=== PATIENT | female | born 1955 | race Hispanic/Latino ===

== ENCOUNTER 2020-12-28 12:11 | Emergency (ER) | payer OTHER ==
--- OUTSIDE RECORDS SUMMARY | 2020-12-28 12:14 | XMS REPORT | Continuity of Care Document ---
:1955 Author Organization [facility] t Address [address] [place] [address] Care Team Providers Name Role Phone Barrie LIEBERMAN, K.H. Attending Clinician Problems This patient has no known problems. Allergies, Adverse Reactions, Alerts This patient has no known allergies or adverse reactions. Medications This patient has no known medications. Procedures This patient has no known procedures. Encounters Start End Encounter Admission Attending Care Care Encounter Source Date/Time Date/Time Type Type Clinicians Facility Department ID 2020-10-08 2020-10-08 Office CLAUDIA Sood [id number] 10:29:13 11:24:13 Visit Julianna Stevenson [id number] [place] [id number] [facility] [id number] [facility]9 Building 2020-08-10 2020-08-10 Office CLAUDIA Sood [id number] 08:38:54 09:08:54 Visit Julianna Stevenson [id number] [place] [id number] [facility] [id number] [facility] Results This patient has no known results.
--- NOTE | 2020-12-28 15:22 | RAD REPORT ---
EXAM DESCRIPTION: RAD - Tib Fib Left - 12/28/2020 3:05 pm CLINICAL HISTORY: Recurrent left lower extremity pain occasionally trigger a fall due to pain severi ty COMPARISON: None. FINDINGS: No fracture is identified. There is no dislocation or periosteal reaction noted. Ankle and knee joints, as imaged, show no acute findings. Patient does have a moderately large plantar spur. No foreign body or other soft tissue abnormality. IMPRESSION: Negative left tibia & fibula examination for acute finding Moderately large plantar spur.
--- NOTE | 2020-12-28 16:23 | EDPHYS ---
Physician Documentation [facility] Name: eJsica Figueroa Age: 65 yrs Sex: Female : 1955 Arrival Date: 12/28/2020 Time: 12:35 Bed 25 Private MD: ED Physician Brant Melchor HPI: 12/28 14:32 This 65 yrs old Female presents to ER via Ambulatory with complaints of Leg jmm Pain. 14:32 The patient presents with an injury, pain. Onset: The symptoms/episode began/occurred jmm gradually, 3 month(s) ago. Modifying factors: The symptoms are alleviated by remaining still, the symptoms are aggravated by movement, weight bearing. Associated signs and symptoms: Pertinent negatives calf tenderness, fever, swelling, tingling, vomiting, warmth, weakness. This is a 65 year old female with a history of htn, DM, HLP that presents to the ED with complaints of left lower leg pain beginning approx 3 months ago. Denies fever, redness, swelling. Patient states she has experienced 3 falls this year which may have injured the leg. . Historical: - Allergies: 12:38 No Known Allergies; ll1 - PMHx: 12:38 Hypertension; Diabetes - NIDDM; Hyperlipidemia; ll1 - PSHx: 12:38 ; ll1 - Immunization history:: Client reports receiving the 2nd dose of the Covid vaccine, Flu vaccine is not up to date. - Social history:: Smoking status: Patient denies any tobacco usage or history of. ROS: 14:32 Constitutional: Negative for fever, chills, and weight loss, Cardiovascular: Negative jmm for chest pain, palpitations, and edema, Respiratory: Negative for shortness of breath, cough, wheezing, and pleuritic chest pain. 14:32 MS/extremity: Positive for pain. 14:32 All other systems are negative. Exam: 14:32 Constitutional: This is a well developed, well nourished patient who is awake, alert, jmm and in no acute distress. Head/Face: atraumatic. Eyes: EOMI, no conjunctival erythema appreciated ENT: Moist Mucus Membranes Neck: Trachea midline, Supple Chest/axilla: Normal chest wall appearance and motion. Cardiovascular: Regular rate and rhythm. No edema appreciated Respiratory: Normal respirations, no respiratory distress appreciated Abdomen/GI: Non distended, soft Back: Normal ROM Skin: General appearance color normal 14:32 Musculoskeletal/extremity: ROM: intact in all extremities. 14:32 Skin: Appearance: 14:32 Neuro: Orientation: is normal, Mentation: is normal, Memory: is normal. 14:32 Psych: Behavior/mood is pleasant, cooperative. Vital Signs: 12:36 BP 119 / 74; Pulse 66; Resp 17; Temp 97.9; Pulse Ox 99% ; Weight 87.09 kg; Height 5 ft. ll1 2 in. (157.48 cm); Pain 8/10; 14:55 BP 98 / 56; Pulse 72; Resp 18; Pulse Ox 97% on R/A; zb 15:47 BP 105 / 92; Pulse 61; Resp 18; Pulse Ox 99% on R/A; zb 16:43 BP 108 / 61; Pulse 65; Resp 16; Pulse Ox 100% ; Pain 0/10; ll1 12:36 Body Mass Index 35.12 (87.09 kg, 157.48 cm) ll1 MDM: 14:32 Patient medically screened. [facility] 14:32 Data reviewed: vital signs, nurses notes. Counseling: I had a detailed discussion with [facility] the patient and/or guardian regarding: the historical points, exam findings, and any diagnostic results supporting the discharge/admit diagnosis, radiology results, the need for outpatient follow up, to return to the emergency department if symptoms worsen or persist or if there are any questions or concerns that arise at home. ED course: US and Xray are negative. Leg is NVI. I do not suspect cellulitis. Patient is advised to follow up with orthopedics for further evaluation. Patient understood and agrees with the plan of care. . 12/28 14:32 Order name: Tib Fib Left XRAY; Complete Time: 15:30 [facility] 12/28 14:32 Order name: US Extremity Venous Unilateral Ltd; Complete Time: 16:40 [facility] Administered Medications: No medications were administered Disposition: 17:33 Co-signature as Attending Physician, Brant Melchor MD. rn Disposition: 12/28/20 16:23 Discharged to Home. Impression: Pain in left leg. - Condition is Stable. - Discharge Instructions: Musculoskeletal Pain. - Prescriptions for orphenadrine citrate 100 mg Oral Tablet Sustained Release - take 1 tablet by ORAL route 2 times per day As needed; 20 tablet. - Medication Reconciliation Form, Thank You Letter, Antibiotic Education, Prescription Opioid Use form. - Follow up: Daniel Abraham MD; When: 2 - 3 days; Reason: Recheck today's complaints, Continuance of care, Re-evaluation by your physician. Signatures: Dispatcher [employer] EDMS Norris Miles PA PA jmm Nieto, Roman, MD MD rn Elías Andujar RN RN ll1 Corrections: (The following items were deleted from the chart) 16:43 16:23 12/28/2020 16:23 Discharged to Home. Impression: Pain in left leg. Condition is ll1 Stable. Forms are Medication Reconciliation Form, Thank You Letter, Antibiotic Education, Prescription Opioid Use. Follow up: Dr. Daniel Abraham; When: 2 - 3 days; Reason: Recheck today's complaints, Continuance of care, Re-evaluation by your physician. manjinder
--- NOTE | 2020-12-28 16:23 | ER ---
Nurse's Notes [facility] Name: Jesica Figueroa Age: 65 yrs Sex: Female : 1955 Arrival Date: 12/28/2020 Time: 12:35 Bed 25 Private MD: Diagnosis: Pain in left leg Presentation: 12/28 12:36 Chief complaint: Patient states: Left lower ext pain (between knee and ankle) for over ll1 1 year. It gives out at times and makes her fall. Coronavirus screen: Client denies travel out of the [place] in the last 14 days. At this time, the client does not indicate any symptoms associated with coronavirus-19. Ebola Screen: Patient denies travel to an Ebola-affected area in the 21 days before illness onset. Initial Sepsis Screen: Does the patient meet any 2 criteria? No. Patient's initial sepsis screen is negative. Does the patient have a suspected source of infection? Yes: Bone or joint infection. Risk Assessment: Do you want to hurt yourself or someone else? Patient reports no desire to harm self or others. Onset of symptoms was November 29, 2019. 12:36 Method Of Arrival: Ambulatory ll1 12:36 Acuity: ABHI 4 ll1 Historical: - Allergies: 12:38 No Known Allergies; ll1 - PMHx: 12:38 Hypertension; Diabetes - NIDDM; Hyperlipidemia; ll1 - PSHx: 12:38 ; ll1 - Immunization history:: Client reports receiving the 2nd dose of the Covid vaccine, Flu vaccine is not up to date. - Social history:: Smoking status: Patient denies any tobacco usage or history of. Screenin:54 Abuse screen: Denies threats or abuse. Denies injuries from another. Nutritional zb screening: No deficits noted. Tuberculosis screening: No symptoms or risk factors identified. Fall Risk None identified. Assessment: 14:54 General: Appears in no apparent distress. uncomfortable, Behavior is calm, cooperative. zb Pain: Complains of pain in left marroquin Pain currently is 3 out of 10 on a pain scale. at worst was 10 out of 10 on a pain scale. Quality of pain is described as aching, sharp, throbbing. Neuro: Level of Consciousness is awake, alert, obeys commands, Oriented to person, place, time, situation. Cardiovascular: Patient's skin is warm and dry. Respiratory: Airway is patent Respiratory effort is even, unlabored, Respiratory pattern is regular, symmetrical. GI: No deficits noted. No signs and/or symptoms were reported involving the gastrointestinal system. Derm: Skin is intact, Skin is dry, Skin is normal. Musculoskeletal: Circulation, motion, and sensation intact. Range of motion: intact in all extremities. 15:47 Reassessment: Patient appears in no apparent distress at this time. Patient and/or zb family updated on plan of care and expected duration. Pain level reassessed. Patient is alert, oriented x 3, equal unlabored respirations, skin warm/dry/pink. US at beside. family at bedside. Vital Signs: 12:36 BP 119 / 74; Pulse 66; Resp 17; Temp 97.9; Pulse Ox 99% ; Weight 87.09 kg; Height 5 ft. ll1 2 in. (157.48 cm); Pain 8/10; 14:55 BP 98 / 56; Pulse 72; Resp 18; Pulse Ox 97% on R/A; zb 15:47 BP 105 / 92; Pulse 61; Resp 18; Pulse Ox 99% on R/A; zb 16:43 BP 108 / 61; Pulse 65; Resp 16; Pulse Ox 100% ; Pain 0/10; ll1 12:36 Body Mass Index 35.12 (87.09 kg, 157.48 cm) ll1 ED Course: 12:35 Patient arrived in ED. ll1 12:37 Triage completed. ll1 14:23 Arm band placed on Patient placed in an exam room, on a stretcher. 1 14:28 Norris Miles PA is PHCP. [facility] 14:28 Brant Melchor MD is Attending Physician. jmm 14:53 Candie Salmeron, MAXX is Primary Nurse. zb 14:56 Patient has correct armband on for positive identification. Placed in gown. Bed in low zb position. Side rails up X 1. Pulse ox on. NIBP on. Door closed. Noise minimized. 15:05 Tib Fib Left XRAY In Process Unspecified. EDMS 16:01 US Extremity Venous Unilateral Ltd In Process Unspecified. EDMS 16:22 Daniel Abraham MD is Referral Physician. [facility] 16:42 No provider procedures requiring assistance completed. Patient did not have IV access ll1 during this emergency room visit. Administered Medications: No medications were administered Outcome: 16:23 Discharge ordered by . manjinder 16:42 Discharged to home ambulatory. ll1 16:42 Condition: stable 16:42 Discharge instructions given to patient, family, Instructed on discharge instructions, follow up and referral plans. medication usage, Demonstrated understanding of instructions, follow-up care, medications, Prescriptions given X 1. 16:43 Patient left the ED. ll1 Signatures: Dispatcher [employer] EDMS Norris Miles PA PA jmm Lewis, Lynsay, RN RN ll1 Candie Salmeron RN RN zb Corrections: (The following items were deleted from the chart) 12:39 12:36 BP 199 / 74; Pulse 66bpm; Resp 17bpm; Pulse Ox 99%; Temp 97.9F; 87.09 kg; Height ll1 5 ft. 2 in.; BMI: 35.1; Pain 8/10; ll1 14:23 12:38 Arm band placed on Patient placed in an exam room, on a stretcher, ll1 ll1
--- NOTE | 2020-12-28 16:33 | RAD REPORT ---
EXAM DESCRIPTION: US - Extremity Venous Uni Ltd - 12/28/2020 4:02 pm CLINICAL HISTORY: leg pain COMPARISON: None. TECHNIQUE: Real-time sonographic evaluation of the left lower extremity deep venous system was perfo rmed. FINDINGS: Normal compressibility, flow augmentation, phasic flow and spontaneous flow are identified in the left lower extremity common femoral, superficial femoral, popliteal and posterior tibial vein s. No intraluminal filling defects seen. IMPRESSION: No DVT in the left lower extremity.
[2020-12-28 16:49] VITALS: TEMP 97.9
[2020-12-28 16:53] VITALS: BP 108/61; O2SAT 100
== END 2020-12-28 16:43 | disposition home or self-care (01) ==
LOC: ER 12:11
DX: M79.605 Pain in left leg (principal); I10 Essential (primary) hypertension; E11.9 Type 2 diabetes mellitus without complications; Z91.81 History of falling
CPT/HCPCS: 93971; 99283

== ENCOUNTER 2021-04-30 23:33 | Emergency (ER) | payer OTHER ==
[2021-05-01 00:38] LABS: Urine Blood 2+ (Negative); Urine Glucose Negative (Negative); Urine Protein 2+ (Negative); Urine Specific Gravity >=1.030 (1.005-1.030)
[2021-05-01 00:57] LABS: Absolute Lymphocytes (CBC) 1.2 K/uL (0.7-4.9); Basophils % 0.4 % (0-1.3); Hematocrit 44.2 % (36.0-45.0); Lymphocytes % 9.1 % (15.3-44.8); MPV 9.9 fL (7.6-11.3); RBC Red Blood Cell Count 5.07 M/uL (3.86-4.86)
[2021-05-01 00:59] LABS: Protime INR 1.25
[2021-05-01 01:11] LABS: Barbiturates NEGATIVE (NEGATIVE); Benzodiazepines NEGATIVE (NEGATIVE); Cocaine NEGATIVE (NEGATIVE); METHAMPHETAM NEGATIVE (NEGATIVE); Methadone NEGATIVE (NEGATIVE); Opiates NEGATIVE (NEGATIVE); Phencyclidine NEGATIVE (NEGATIVE); THC Cannibis NEGATIVE (NEGATIVE)
[2021-05-01 01:28] LABS: ALT/SGPT 40 U/L (12-78); AST/SGOT 99 U/L (15-37); Albumin 3.8 g/dL (3.4-5.0); Alkaline Phosphatase 80 U/L (45-117); BUN Blood Urea Nitrogen 20 mg/dL (7-18); Bicarbonate 27 mmol/L (21-32); Bilirubin Direct 0.6 mg/dL (0-0.2); Bilirubin Total 1.9 mg/dL (0.2-1.0); Glucose Level 139 mg/dL (74-106); Magnesium 2.1 mg/dL (1.8-2.4); NT PRO-BNP 1410 pg/mL (<125); Potassium 3.5 mmol/L (3.5-5.1); Protein, Total 8.1 g/dL (6.4-8.2); Sodium Level 142 mmol/L (136-145); Troponin (Emerg Dept Use Only) 0.36 ng/mL (0.0-0.045)
[2021-05-01 01:29] LABS: Creatine Phosphokinase 2853 U/L (26-192)
[2021-05-01] MEDS ORDERED: CEFTRIAXONE 1000 MG/VIAL ONE (02:41)
[2021-05-01] MEDS ORDERED: NA CHLORIDE 0.9% 1,000 ML ONE (02:42)
[2021-05-01 03:17] LABS: SARS-COV-2 RT PCR NEGATIVE (NEGATIVE)
[2021-05-01] MEDS ORDERED: LEVETIRACETAM 500 MG/5 ML VIAL IV ONE (03:56)
[2021-05-01] MEDS ORDERED: dexAMETHasone 10 MG/ML VIAL ONE (03:56)
--- NOTE | 2021-05-01 05:56 | EDPHYS ---
Physician Documentation [facility] Name: Jesica Figueroa Age: 65 yrs Sex: Female : 1955 Arrival Date: 04/30/2021 Time: 23:40 Bed 13 Private MD: ED Physician Percy Morrison HPI: 04/30 23:45 This 65 yrs old Female presents to ER via Unassigned with complaints of Passed mh7 Out.. 23:45 The patient has experienced syncope, collapsed. Onset: The symptoms/episode mh7 began/occurred today. Duration: This was a single episode, that lasted an unknown period of time. Context: the episode(s) was witnessed, by no one, occurred at home, occurred while the patient was standing, Just prior to the episode the patient experienced no apparent symptoms. Associated injury: The patient did not suffer any apparent associated injury. Associated signs and symptoms: Pertinent negatives: abdominal pain, agitation, ataxia, blurred vision, chest pain, combativeness, confusion, diaphoresis, diarrhea, dizziness, headache, lightheadedness, nausea, numbness, palpitations, seizure, shortness of breath, tingling, vertigo, vomiting, weakness. Current symptoms: Currently, the patient is not experiencing any symptoms, the patient feels back to baseline. Patient states that she passed out today and was on the floor for several hours. Her found her on the floor and called EMS. She states that she had a similar episode about a week ago and was on the floor for several days. She denies any symptoms prior to passing out including headache, chest pain, abdominal pain, shortness of breath, nausea, vomiting, diarrhea, dizziness, numbness/tingling, or focal weakness.. Historical: - PMHx: 05/01 00:18 Diabetes - NIDDM; Hypertension; Hyperlipidemia; mr2 - Immunization history:: Adult Immunizations up to date. - Social history:: Patient/guardian denies using alcohol, street drugs, tobacco products. ROS: 04/30 23:45 Constitutional: Negative for fever, chills, and weight loss, Eyes: Negative for injury, mh7 pain, redness, and discharge, ENT: Negative for injury, pain, and discharge, Neck: Negative for injury, pain, and swelling, Cardiovascular: Negative for chest pain, palpitations, and edema, Respiratory: Negative for shortness of breath, cough, wheezing, and pleuritic chest pain, Abdomen/GI: Negative for abdominal pain, nausea, vomiting, diarrhea, and constipation, Back: Negative for injury and pain, : Negative for injury, bleeding, discharge, and swelling. Skin: Negative for injury, rash, and discoloration, Neuro: Negative for headache, weakness, numbness, tingling, and seizure, Psych: Negative for depression, anxiety, suicide ideation, homicidal ideation, and hallucinations, Allergy/Immunology: Negative for hives, rash, and allergies, Endocrine: Negative for neck swelling, polydipsia, polyuria, polyphagia, and marked weight changes, Hematologic/Lymphatic: Negative for swollen nodes, abnormal bleeding, and unusual bruising. MS/extremity: Positive for pain, of the Right hip. Exam: 23:45 Head/Face: Normocephalic, atraumatic. mh7 23:45 Eyes: Pupils equal round and reactive to light, extra-ocular motions intact. Lids and lashes normal. Conjunctiva and sclera are non-icteric and not injected. Cornea within normal limits. Periorbital areas with no swelling, redness, or edema. Neck: Trachea midline, no thyromegaly or masses palpated, and no cervical lymphadenopathy. Supple, full range of motion without nuchal rigidity, or vertebral point tenderness. No Meningismus. Chest/axilla: Normal chest wall appearance and motion. Nontender with no deformity. No lesions are appreciated. 23:45 Constitutional: The patient appears in no acute distress, alert, awake, uncomfortable, unkempt. 23:45 Cardiovascular: Rate: tachycardic, Rhythm: regular, Pulses: no pulse deficits are mh7 appreciated, Heart sounds: normal, normal S1and S2, Edema: is not appreciated, JVD: is not appreciated. 23:45 Respiratory: Lungs have equal breath sounds bilaterally, clear to auscultation and mh7 percussion. No rales, rhonchi or wheezes noted. No increased work of breathing, no retractions or nasal flaring. Abdomen/GI: Soft, non-tender, with normal bowel sounds. No distension or tympany. No guarding or rebound. No evidence of tenderness throughout. Back: No spinal tenderness. No costovertebral tenderness. Full range of motion. Skin: Warm, dry with normal turgor. Normal color with no rashes, no lesions, and no evidence of cellulitis. 23:45 Musculoskeletal/extremity: Extremities: noted in the left leg: weakness, noted in the Right hip: tenderness, ROM: limited active range of motion, in the left leg, Circulation is intact in all extremities. Sensation intact. Compartment Syndrome exam of affected extremity: is normal. no numbness, no tingling, no sensation deficit, Joints: the right hip displays tenderness. 23:45 Neuro: Orientation: to person, place, Mentation: confused, Confused about timing of events, Memory: immediate memory is intact, remote memory is intact. recent memory is impaired, Cranial nerves: grossly normal, Cerebellar function: the patient is unable to track left heel to right marroquin, Motor: Strength is 2/5 in the left leg, Sensation: no obvious gross deficits, Gait: not tested. seizure activity, is not displayed by the patient, Abnormal movements: there are no abnormal movements. Vital Signs: 05/01 00:49 BP 121 / 73; Pulse 102; Resp 18; Temp 98.4; Pulse Ox 98% on R/A; Weight 83.91 kg; mr2 Height 5 ft. 2 in. (157.48 cm); 02:00 BP 111 / 78; Pulse 97; Resp 18; Temp 98.3; Pulse Ox 97% on R/A; Pain 3/10; mr2 03:00 BP 122 / 82; Pulse 91; Resp 17; Temp 98.4; Pulse Ox 98% on R/A; Pain 3/10; mr2 04:00 BP 107 / 80; Pulse 100; Resp 17; Temp 98.2; Pulse Ox 97% on R/A; Pain 2/10; mr2 07:37 BP 109 / 66; Pulse 87; Resp 17; Temp 98.4(TE); Pulse Ox 95% on R/A; oh 09:57 BP 105 / 73; Pulse 71; Resp 20; Temp 98.1(TE); Pulse Ox 99% ; oh 00:49 Body Mass Index 33.84 (83.91 kg, 157.48 cm) mr2 [place] Coma Score: 01:34 Eye Response: spontaneous(4). Verbal Response: confused(4). Motor Response: obeys mr2 commands(6). Total: 14. Trauma Score (Adult): 01:35 Eye Response: spontaneous(1); Verbal Response: confused(1); Motor Response: obeys mr2 commands(2); Systolic BP: > 89 mm Hg(4); Respiratory Rate: 10 to 29 per min(4); [place] Score: 14; Trauma Score: 12 MDM: 05:51 Differential Diagnosis: cardiac arrhythmia, cerebrovascular accident, drug effect, [facility] idiopathic syncope, pseudo seizure, seizure, sepsis, transient ischemic attack, vasovagal episode. Data reviewed: vital signs, nurses notes, lab test result(s), cardiac enzymes, CBC, electrolytes, urinalysis, EKG, radiologic studies, CT scan, plain films. Data interpreted: Pulse oximetry: on room air is 97 %. Interpretation: normal. Counseling: I had a detailed discussion with the patient and/or guardian regarding: the historical points, exam findings, and any diagnostic results supporting the discharge/admit diagnosis, lab results, radiology results, the need to transfer to another facility, [facility] does not immediately have the required specialist. Response to treatment: the patient's symptoms have mildly improved after treatment. 05:55 Patient medically screened. [facility] 07:07 Transition of care: After a detail discussion of the patient's case, care is 7 transferred to Emmett Wilkes MD. 04/30 23:55 Order name: Basic Metabolic Panel [facility] 04/30 23:55 Order name: CBC with Diff [facility] 04/30 23:55 Order name: LFT's [facility] 04/30 23:55 Order name: Magnesium [facility] 04/30 23:55 Order name: NT PRO-BNP; Complete Time: 01:38 [facility] 04/30 23:55 Order name: PT-INR; Complete Time: 01:18 [facility] 04/30 23:55 Order name: Troponin (emerg Dept Use Only); Complete Time: 01:38 [facility] 04/30 23:55 Order name: UDS; Complete Time: 01:18 [facility] 04/30 23:55 Order name: CPK; Complete Time: 01:38 [facility] 04/30 23:55 Order name: Basic Metabolic Panel; Complete Time: 01:31 EDPA 04/30 23:55 Order name: CBC with Automated Diff; Complete Time: 01:18 [facility] 04/30 23:55 Order name: Liver (Hepatic) Function; Complete Time: 01:38 EDMS 04/30 23:55 Order name: ETOH Level; Complete Time: 01:38 [facility] 04/30 23:55 Order name: Acetaminophen; Complete Time: 01:38 [facility] 04/30 23:55 Order name: XRAY Chest (1 view) [facility] 04/30 23:55 Order name: CT Head C Spine [facility] 04/30 23:55 Order name: Pelvis XRAY [facility] 04/30 23:55 Order name: Hip Right 2 View XRAY [facility] 04/30 23:55 Order name: Salicylate; Complete Time: 01:38 [facility] 04/30 23:56 Order name: Magnesium; Complete Time: 01:38 EDMS 05/01 00:05 Order name: CT Chest, Abdomen, Pelvis - W/Contrast [facility] 05/01 00:37 Order name: Urine Dipstick-Ancillary; Complete Time: 01:18 EDMS 05/01 01:39 Order name: Blood Culture Adult (2) [facility] 05/01 01:39 Order name: Urine Culture [facility] 05/01 01:39 Order name: Lactate; Complete Time: 03:08 [facility] 05/01 01:39 Order name: Procalcitonin; Complete Time: 03:08 [facility] 05/01 03:17 Order name: COVID-19/FLU A+B; Complete Time: 03:21 EDMS 04/30 23:55 Order name: EKG; Complete Time: 23:56 [facility] 04/30 23:55 Order name: Cardiac monitoring; Complete Time: 00:48 [facility] 04/30 23:55 Order name: EKG - Nurse/Tech; Complete Time: 00:48 [facility] 04/30 23:55 Order name: IV Saline Lock; Complete Time: 00:48 [facility] 04/30 23:55 Order name: Labs collected and sent; Complete Time: 00:48 [facility] 04/30 23:55 Order name: O2 Per Protocol; Complete Time: 00:48 [facility] 04/30 23:55 Order name: O2 Sat Monitoring; Complete Time: 00:48 [facility] 04/30 23:55 Order name: Urine Dipstick-Ancillary (obtain specimen); Complete Time: 00:48 7 Administered Medications: 02:08 Drug: Rocephin (cefTRIAXone) 1 grams Route: IV; Rate: per protocol; Site: right mr2 antecubital; 02:09 Drug: NS 0.9% 1000 ml Route: IV; Rate: 1 bolus; Site: right antecubital; mr2 03:29 Drug: Keppra (levETIRAcetam) 1000 mg Route: IV; Rate: per protocol; Site: right upper mr2 arm; 03:29 Drug: Decadron - Dexamethasone 10 mg Route: IVP; Site: right upper arm; mr2 Disposition Summary: 05/01/21 05:55 Transfer Ordered Transfer Location: Other Acute Care Facility [facility] Reason: Higher level of care [facility] Condition: Fair [facility] Problem: new [facility] Symptoms: have improved 7 Accepting Physician: Neuro/cards(05/01/21 10:56) oh Diagnosis - Cerebral edema mh7 - Subsequent non-ST elevation (NSTEMI) myocardial infarction mh7 - Syncope 7 - UTI/ Urinary tract infection, site not specified [facility] - Rhabdomyolysis [facility] Forms: - Medication Reconciliation Form 7 - SBAR form [facility] Signatures: Dispatcher [employer] EDPA Morgan Meyers, BONING ROOM WORKER-C BONING ROOM WORKER-Cla1 Percy Morrison MD MD 7 Wan Mendoza, RN RN mr2 Max Huerta RN RN oh Corrections: (The following items were deleted from the chart) 02: 01:42 CORONAVIRUS+MR.LAB.BRZ ordered. EDMS EDMS 02:31 01:42 Influenza Screen (A \T\ B)+BA.LAB.BRZ ordered. EDMS EDMS 10:56 05:55 Neuro/cards 7 oh
--- NOTE | 2021-05-01 05:56 | ER ---
Nurse's Notes [facility] Name: Jesica Figueroa Age: 65 yrs Sex: Female : 1955 Arrival Date: 04/30/2021 Time: 23:40 Bed 13 Private MD: Diagnosis: Cerebral edema;Subsequent non-ST elevation (NSTEMI) myocardial infarction;Syncope;UTI/ Urinary tract infection, site not specified;Rhabdomyolysis Presentation: 05/01 00:13 Chief complaint: Patient states: pt lives alone and states that she fell down today and mr2 was laying on the floor all day. pt found by ex who stopped by house after not hearing from her in 3 days. Coronavirus screen: Vaccine status: Patient reports receiving the 2nd dose of the covid vaccine. Ebola Screen: Patient negative for fever greater than or equal to 101.5 degrees Fahrenheit, and additional compatible Ebola Virus Disease symptoms Patient denies exposure to infectious person. Patient denies travel to an Ebola-affected area in the 21 days before illness onset. No symptoms or risks identified at this time. Risk Assessment: Do you want to hurt yourself or someone else? Patient reports no desire to harm self or others. Onset of symptoms was April 30, 2021. Mechanism of Injury: Fall from standing position. 00:13 Method Of Arrival: EMS: [facility] mr2 00:13 Acuity: ABHI 3 mr2 Triage Assessment: 00:19 General: Appears distressed, unkempt, Behavior is cooperative, anxious. Pain: Complains mr2 of pain in right hip Pain at worst was 7 out of 10 on a pain scale. Neuro: Reports weakness. Historical: - PMHx: 00:18 Diabetes - NIDDM; Hypertension; Hyperlipidemia; mr2 - Immunization history:: Adult Immunizations up to date. - Social history:: Patient/guardian denies using alcohol, street drugs, tobacco products. Screenin:53 Abuse screen: Denies threats or abuse. Denies injuries from another. Nutritional mr2 screening: No deficits noted. Tuberculosis screening: No symptoms or risk factors identified. Fall Risk Fall in past 12 months (25 points). Gait- Weak (10 pts.). Primary Survey: 01:30 NO uncontrolled hemorrhage observed. A: Airway: patent. Breathing/Chest: Respiratory mr2 pattern: regular, Respiratory effort: spontaneous, Breath sounds: clear, Chest inspection: symmetrical rise and fall of the chest. Circulation: Pulses: palpable right radial artery, right dorsalis pedis artery, left radial artery, left dorsalis pedis artery and right carotid pulse. Skin color: pink, Skin temperature: warm, dry. Disability Alert. Exposure/Environment: All clothing and personal items were removed. Forensic evidence collection is not deemed to be indicated at this time. Items placed in patient belonging bag. There is no evidence of uncontrolled external bleeding. A warming method has been applied: A warm blanket has been provided to the patient. Secondary Survey: 01:30 HEENT: No deficits noted. Gastrointestinal: Patient is incontinent of stool. : No mr2 signs and/or symptoms were reported regarding the genitourinary system. Musculoskeletal: Reports pain in right hip. Assessment: 00:50 General: Appears unkempt. Pain:. Neuro: Level of Consciousness is awake, obeys mr2 commands, confused, Oriented to Speech is normal. 07:41 Reassessment: Receive pt from previous shift, pt sleeping, awaiting transfer. vitals oh stable , will continue to monitor. 09:55 Reassessment: pt awake alert, asking questions regarding care. Report given to [facility] neuro rm 221, MAXX Daley receiving nurse. Vital Signs: 00:49 BP 121 / 73; Pulse 102; Resp 18; Temp 98.4; Pulse Ox 98% on R/A; Weight 83.91 kg; mr2 Height 5 ft. 2 in. (157.48 cm); 02:00 BP 111 / 78; Pulse 97; Resp 18; Temp 98.3; Pulse Ox 97% on R/A; Pain 3/10; mr2 03:00 BP 122 / 82; Pulse 91; Resp 17; Temp 98.4; Pulse Ox 98% on R/A; Pain 3/10; mr2 04:00 BP 107 / 80; Pulse 100; Resp 17; Temp 98.2; Pulse Ox 97% on R/A; Pain 2/10; mr2 07:37 BP 109 / 66; Pulse 87; Resp 17; Temp 98.4(TE); Pulse Ox 95% on R/A; oh 09:57 BP 105 / 73; Pulse 71; Resp 20; Temp 98.1(TE); Pulse Ox 99% ; oh 00:49 Body Mass Index 33.84 (83.91 kg, 157.48 cm) mr2 [place] Coma Score: 01:34 Eye Response: spontaneous(4). Verbal Response: confused(4). Motor Response: obeys mr2 commands(6). Total: 14. Trauma Score (Adult): 01:35 Eye Response: spontaneous(1); Verbal Response: confused(1); Motor Response: obeys mr2 commands(2); Systolic BP: > 89 mm Hg(4); Respiratory Rate: 10 to 29 per min(4); Hang Score: 14; Trauma Score: 12 ED Course: 04/30 23:40 Patient arrived in ED. bp1 23:42 Percy Morrison MD is Attending Physician. [facility] 05/01 00:13 Wan Mendoza, RN is Primary Nurse. mr2 00:18 Triage completed. mr2 00:23 Arm band placed on right wrist. EKG completed in triage. Results shown to MD. mr2 00:28 XRAY Chest (1 view) In Process Unspecified. EDMS 00:28 Pelvis XRAY In Process Unspecified. EDMS 00:28 Hip Right 2 View XRAY In Process Unspecified. EDMS 00:47 Magnesium Sent. mr2 00:47 Salicylate Sent. mr2 00:47 Acetaminophen Sent. mr2 00:47 ETOH Level Sent. mr2 00:48 NT PRO-BNP Sent. mr2 00:48 PT-INR Sent. mr2 00:48 Troponin (emerg Dept Use Only) Sent. mr2 00:48 Magnesium Sent. mr2 00:48 LFT's Sent. mr2 00:48 CBC with Diff Sent. mr2 00:48 Basic Metabolic Panel Sent. mr2 00:48 CPK Sent. mr2 00:48 UDS Sent. mr2 00:48 Basic Metabolic Panel Sent. mr2 00:48 Liver (Hepatic) Function Sent. mr2 00:48 CBC with Automated Diff Sent. mr2 01:30 Notified ED physician of a critical lab result(s). CPK [id number] Dr Morrison notified. bb 01:40 Inserted saline lock: 20 gauge in right antecubital area, using aseptic technique. mr2 01:42 Patient has correct armband on for positive identification. Placed in gown. Bed in low mr2 position. Call light in reach. 02:20 CT Head C Spine In Process Unspecified. EDMS 02:20 CT Chest, Abdomen, Pelvis - W/Contrast In Process Unspecified. EDMS 02:59 Initiated transfer at [facility] with Laura Ward. Stated she would check bed tt3 availability and call back. 03:18 Laura Friend called back with their physician to speak with Dr. Morrison regarding the tt3 transfer request. 04:09 Laura Friend called back from [facility] to speak with Dr. Morrison. tt3 04:29 Laura Friend called back with Dr. Andrews to speak with Dr. Morrison. tt3 05:36 Laura Friend called back to connect Dr. Morrison with their neurosurgeon. tt3 05:[address]ist Dr[address] Avinash Dalton with Dr. Morrison for patient transfer eb consultation. 07:19 Primary Nurse role handed off by Wan Mendoza RN oh 07:19 Max Huerta, MAXX is Primary Nurse. oh 08:38 administrative approval given by Shane Haji Rn/ patient has been accepted to [facility] tele rm 2210/ Dr. Avinash Juarez has accepted the patient in transfer/ report to be called to the transfer center to [phone]. 10:55 Patient transferred, IV remains in place. oh Administered Medications: 02:08 Drug: Rocephin (cefTRIAXone) 1 grams Route: IV; Rate: per protocol; Site: right mr2 antecubital; 02:09 Drug: NS 0.9% 1000 ml Route: IV; Rate: 1 bolus; Site: right antecubital; mr2 03:29 Drug: Keppra (levETIRAcetam) 1000 mg Route: IV; Rate: per protocol; Site: right upper mr2 arm; 03:29 Drug: Decadron - Dexamethasone 10 mg Route: IVP; Site: right upper arm; mr2 Outcome: 05:55 ER care complete, transfer ordered by MD. nielson 10:01 Transferred to [facility]. oh 10:01 Instructed on the need for transfer. 10:56 Patient left the ED. oh Addendum: 05/06/2021 12:39 Addendum: Culture Results: Positive urine culture. Other given rocephin in ER, i w transferred to [facility] for further treatment. Signatures: Dispatcher [employer] Avril Gray, RN RN bb Sara Mosher RN RN iw Farzana Evans Brittany bp1 Holmes, Maurice, MD MD mh7 Colin Bashir tt3 Wan Mendoza RN RN mr2 Max Huerta RN RN oh Corrections: (The following items were deleted from the chart) 05/01 10:00 09:57 BP 105 / 73; oh oh 05/06 12:40 12:39 Addendum: Culture Results: Positive urine culture. [facility]
[2021-05-01 11:09] VITALS: BP 105/73; TEMP 98.1; O2SAT 99
--- NOTE | 2021-05-01 20:54 | RAD REPORT ---
EXAM DESCRIPTION: CT - Chest Abdomen Pelvis W Cont - 05/01/2021 4:14 am CLINICAL HISTORY: TRAUMA COMPARISON: None. TECHNIQUE: CT CHEST ABDOMEN PELVIS WITH IV CONTRAST on 05/01/2021 12:05 AM CDT. MIPS reconstructions were generated. This exam was performed according to our departmental dose-optimization program, which includes autom ated exposure control, adjustment of the mA and/or kV according to patient size and/or use of iterati ve reconstruction technique. FINDINGS: Vascular: Thoracic aorta is normal in course and caliber without aneurysm or dissection. P ulmonary arteries are adequately opacified without acute or chronic filling defects. Abdominal aorta is normal in course and caliber without aneurysm. Pelvic arteries are patent without aneurysm or occl usion. Chest: The heart is normal in size. There is no pericardial effusion. Intrathoracic lymph nodes are n ot enlarged. There is no pleural effusion, pleural thickening or pneumothorax. Central airways are patent. There i s bibasilar atelectasis and scarring. Abdomen: There is a right hepatic lobe cyst measuring 4.2 cm. There is no biliary dilatation. Gallbla dder is normal in appearance. The pancreas and spleen are normal in appearance. The adrenal glands an d kidneys are unremarkable. There is no free air. There is no retroperitoneal adenopathy. Pelvis: There is moderate distal colonic stool content. Urinary bladder is decompressed with a Rivera catheter as well as air within. There is no free fluid. Appendix is normal. Skeleton: There are no acute osseous findings. No suspicious bony lesions. IMPRESSION: No definite acute inflammatory process. No posttraumatic findings. Electronically signed by: Wellington Theodore MD 05/01/2021 3:12 AM CDT Due to temporary technical issues with the PACS/Fluency reporting system, reports are being signed by the in house radiologists without review as a courtesy to insure prompt reporting. The interpreting radiologist is fully responsible for the content of the report.
--- NOTE | 2021-05-01 20:57 | RAD REPORT ---
EXAM DESCRIPTION: CT - Head C Spine Mpr Wo Con - 05/01/2021 4:13 am CLINICAL HISTORY: Trauma COMPARISON: None. TECHNIQUE: CT HEAD AND CERVICAL SPINE WITHOUT CONTRAST on 04/30/2021 11:55 PM CDT This exam was performed according to our departmental dose-optimization program, which includes autom ated exposure control, adjustment of the mA and/or kV according to patient size and/or use of iterati ve reconstruction technique. FINDINGS: Brain: There is extensive vasogenic edema throughout much of the left frontal lobe. There is severe mass effect with [id number] midline shift of 1.8 cm. There is some involvement of the ri ght frontal lobe as well. Mcbride-white differentiation is preserved. There is no hydrocephalus. There i s no significant volume loss for age. The calvarium is intact. Orbits and globes are unremarkable. The paranasal sinuses are clear. Mastoid air cells are clear. Cervical Spine: There is no acute fracture. Alignment is anatomic. Disc spaces are maintained. Vertebral body heights are preserved. Soft tissues are unremarkable. IMPRESSION: No acute hemorrhage. 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 No convincing posttraumatic findings. Electronically signed by: Wellington Theodore MD 05/01/2021 2:54 AM CDT Due to temporary technical issues with the PACS/Fluency reporting system, reports are being signed by the in house radiologists without review as a courtesy to insure prompt reporting. The interpreting radiologist is fully responsible for the content of the report.
--- NOTE | 2021-05-01 22:17 | RAD REPORT ---
EXAM DESCRIPTION: RAD - Hip Right 2 View - 05/01/2021 12:28 am CLINICAL HISTORY: 65 years, Female, trauma Hip Right 2 View COMPARISON: None. FINDINGS: 2 views of the hip (frontal view of the right hip and frogleg view of the right hip) were obtained. The presence of external devices within the field of imaging limits the evaluation. No ar eas of acute bony injuries were demonstrated. No gross soft tissue abnormality is identified. The re are no gross intraosseous lesions. No periosteal reaction were seen. The right hip joint demon strate very minimal early spur formation along the anterior superior aspect of the acetabulum. No def initive significant displaced fracture could be seen. No definitive displaced fracture are identified, if symptoms persist, clinical correlation and/or fur ther evaluation with CT scan and/or MRI could be of assistance. IMPRESSION: Very minimal early spur formation along the anterior superior aspect of the right acetab ulum. No definitive displaced fracture could be seen. Electronically signed by: Jayden Yen MD 05/01/2021 2:48 AM CDT Due to temporary technical issues with the PACS/Fluency reporting system, reports are being signed by the in house radiologists without review as a courtesy to insure prompt reporting. The interpreting radiologist is fully responsible for the content of the report.
--- NOTE | 2021-05-01 22:19 | RAD REPORT ---
EXAM DESCRIPTION: RAD - Pelvis - 05/01/2021 12:27 am CLINICAL HISTORY: 65 years, Female, TRAUMA COMPARISON: None. FINDINGS: 1 single frontal view of the pelvis was obtained. There is mild diffuse bony osteopenia. N o areas of acute bony injuries were demonstrated. No gross soft tissue abnormality is identified. There are no gross intraosseous lesions. No periosteal reaction were seen. Visualized gas patter n is nondiagnostic. Pelvic brim is intact. Bilateral hip joints demonstrate to be within normal limit s. IMPRESSION: No areas of acute bony injuries were demonstrated. Electronically signed by: Jayden Yen MD 05/01/2021 2:47 AM CDT Due to temporary technical issues with the PACS/Fluency reporting system, reports are being signed by the in house radiologists without review as a courtesy to insure prompt reporting. The interpreting radiologist is fully responsible for the content of the report.
--- NOTE | 2021-05-01 22:22 | RAD REPORT ---
EXAM DESCRIPTION: RAD - Chest Single View - 05/01/2021 12:27 am CLINICAL HISTORY: 65 years, Female, syncope COMPARISON: None. FINDINGS: Single view of the chest was obtained portable. No prior films are available for compariso n. There is elevation of the right hemidiaphragm with minimal compressive atelectatic changes. The cardiomediastinal silhouette demonstrate to be unremarkable. The heart is not enlarged. The thoracic aorta is unremarkable. Costophrenic angles are sharp. No areas of consolidation or masses are seen. External EKG leads within the [id number] limits diagnosis. The rest of the soft tissue and bony s tructures demonstrate to be unremarkable. IMPRESSION: No acute cardiopulmonary process seen. Elevated right hemidiaphragm with minimal compressive atelectatic changes. Electronically signed by: Jayden Yen MD 05/01/2021 2:49 AM CDT Due to temporary technical issues with the PACS/Fluency reporting system, reports are being signed by the in house radiologists without review as a courtesy to insure prompt reporting. The interpreting radiologist is fully responsible for the content of the report.
--- NOTE | 2021-05-04 18:18 | EKG ---
Test Date: 2021-05-01 Test Time: 00:25:40 Lead Pharmacy Technician: MEASUREMENT RESULTS: Intervals: Rate: 105 NJ: 140 QRSD: 74 QT: 368 QTc: 486 [place]: P: 45 NJ: 140 QRS: -20 T: 38 INTERPRETIVE STATEMENTS: Sinus tachycardia Nonspecific ST abnormality Abnormal ECG No previous ECG available for comparison Electronically Signed On 05-04-21 18:06:56 CDT by Harjit Sanz
== END 2021-05-01 10:56 ==
LOC: ER 23:33
DX: I22.2 Subsequent non-ST elevation (NSTEMI) myocardial infarction (principal); G93.6 Cerebral edema; M62.82 Rhabdomyolysis; N39.0 Urinary tract infection, site not specified; E11.9 Type 2 diabetes mellitus without complications; I10 Essential (primary) hypertension; Z20.822 Contact with and (suspected) exposure to COVID-19
CPT/HCPCS: 93005; 87040 ×2; 87088; 85025; 87086; 80048; 36415; 80320; 83735; 82550; 80329 ×2; 85610; 82565; 80076; 83605; 87077 ×2; 87186 ×2; 81003; 84484; 84145; 83880; 0240U; 80307; 70450; 72125; 71260; 74177; 71045; 72170; 73502; 99285; Q9967; J1100; J1953; J7030

== ENCOUNTER 2021-05-06 09:35 | Inpatient (IN) | payer OTHER ==
--- NOTE | 2021-05-11 15:05 | R.PREADM ---
PRE-ADMISSION SCREENING FORM SCREENING DATE AND TIME 05/10/2021 15:08 (CDT) ANTICIPATED REHAB ADMISSION DATE 05/12/[address] [facility] REFERRAL DATE AND TIME 05/10/2021 15:11 (CDT) REFERRAL ROOM# [id number] 01 ACUTE ADMIT DATE 05/01/2021 Previous Rehabilitation(s): No. ACUTE PET FOOD DEBONER/DC HAND CANDLE DIPPER Kathleen Chapa ATTENDING PHYSICIAN Dr. Milton Ritchie REFERRING PHYSICIAN Dr. Giovani White REHAB FACILITY [facility] CLINICAL LIAISON Thompson Murillo PHYSICIAN REVIEWER Dr. Sanket Shine M.D. MR# [id number] NAME DIEGO FIGUEROA ADDRESS [address] [facility] [id number] DATE OF 1955 AGE 65 SSN# [id number] GENDER female MARITAL STATUS PREF. LANGUAGE (IF NON-BULGARIAN) Trinidadian ADMIT FROM 02 [facility] PRE-HOSPITAL LIVING SETTING 01 - Home (private home/apt. board/care, assisted living, half-way, transitional living) HOME TYPE AND DETAILS Type of home: single family house # of steps within the residence: 0 # of levels in the residence: 1 PRE-HOSPITAL LIVING WITH Alone FAMILY SUPPORT Yes FAMILY SUPPORT DETAILS Occasional assistance from nearby family PRIMARY FAMILY CONTACT NAME Tavia Lentz PRIMARY FAMILY CONTACT PHONE PRIMARY FAMILY CONTACT RELATIONSHIP Daughter PHONE PRIMARY FAMILY CONTACT ON ADM.? no IS PRIMARY FAMILY CONTACT AUTH. REP.? no 1ST EMERGENCY CONTACT Tavia Lentz 1ST CONTACT PHONE 1ST CONTACT RELATIONSHIP Daughter PHONE 1ST CONTACT ON ADM. no IS 1ST CONTACT AUTH. REP.? no PHONE 2ND CONTACT ON ADM.? no PATIENT EMPLOYMENT STATUS Not Working PATIENT EMPLOYER No Employer PAYOR INFORMATION: 1ST PAYOR NAME [employer] 1ST PAYOR POLICY ID [id number] INJURY/ILLNESS DUE TO ACCIDENT? No ANOTHER DEMOCRAT RESPONSIBLE? 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 Craniotomy Excision Tumor 05/04/2021 Procedure w/ Stealth 05/04/2021 INTERVENTIONS: - Safety Awareness fall prevention Assessment of vitals medication managment - Ambulation Out of bed movement RISK FOR COMPLICATIONS: - DVT KEVIN hose; sequential compression device as needed/prescribed Routine checks/assessments of pt - UTI Monitor for frequency, burning, discomfort, or incontinence - PNA Clinical staff to encourage OOB movements/tasks/activities Clinical staff to encourage breathing exercises - Skin Breakdown Nursing will assess skin daily using assessment tool and will place on Skin Breakdown Precautions as Indicated per protocol - Pain Medications will be given and the pain level reassessed. Clinical Staff may employ other methods such as: massage, distraction, decrease stimulus, etc. as needed Clinical staff will assess patient's pain level every shift per protocol to monitor for pain manageme nt effectiveness Educate patient on pain management strategies - Falls Educated pt on fall prevention strategies to reduce/eliminate fall risk Patient will be evaluated for Fall Precautions and will be placed on Fall Precautions as indicated pe r protocol. - Infection Worsening infection - Impaired Safety Educate patient on safety hazards Educate patient on safety awareness strategies. - Anxiety Clinical staff will take time to explain any procedures, POC, and course of current tx. - Bleeding Monitor lab values - Limb Ischemia Assess circulation each shift Report any changes to MD SUMMARY OF ACUTE HOSPITALIZATION: Pt. is a 65 yo Right-handed HF. 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 Her impairment category is Brain Dysfunction 02 - Non-traumatic Brain Dysfunction (02.1). Pre-morbidly, Pt. was independent/mod-I in Locomotion, Safety Awareness, Social Cognition, Transfers Control, Sphincter Control, Endurance, and Communication; and she had good Locomotion, Safety Awarene ss, Balance, Transfers Control, Sphincter Control, Self-Care, Communication, and Endurance. Currently, she has deficits of Locomotion, Safety Awareness, Social Cognition, Balance, Transfers Con trol, Self-Care, Communication, and Endurance. Pt. is now referred to [facility] for acute in-patient rehabilitation in order to maximize patient's functional independence in activities of daily living, strength, ROM, and mobi lity. Patient has realistic goal of being discharged at assistance level 7-Ind to reside at Home with Pt s elf. Ms. Diego Figueroa is a 65 yo female with fall and syncope. She has a history of DM 2, HTN, HLD Who presented with syncope on Monday and found by around [place] and called EMS. Sh e is noted to be a poor historian. Pt may have fallen several days ago. CT brain w/o herniation. [place] scan CT with contrast did not show cancer. She denied any CP or SOB. She denies dizziness, tingling, sensory change, speech change, focal weakness, seizures, loss of consciousness, weakness and headache s. Pt is currently working with PT. PT report: Pt demonstrates good progress with mobility. Patient w as able to perform supine to sit transfer with CGA and STS with GAURAV. Pt ambulated with RW and IV juan e 38 ft. Pt demonstrates a shuffling gate pattern with decreased step length and swing on LLE. Nimesh rs to progress include: s/p craniotomy, generalized weakness, intermittent confusion with complex dem ands. Pt requires assistance of intense acute IRF due to needing to safely discharge home at [facility]. Pt is recently from and has occasional help from family. Pt reports desire to return to independently completing IADL's and requiring less assistance from family/friends. With an interdisciplinary approach by acute IRF, pt. demonstrates great potential and motivation to get stronger, safer, and more independent to return to [facility]. It is reasonable and nec essary for the patient to come to acute IRF to safely dc. Pt is medically stable but in need of 24 hour nursing, doctor supervision, and oversight while receiving active and ongoing intensive (OT/PT/ST). The patient is reasonably expected to participate in 3 hours of therapy a day/15 hours a week. COVID-19 screening performed. Patient denies a new onset of fever, cough, difficulty breathing, sore throat, body aches and non-allergy nasal congestion in the past 24 hours. Patient denies travel outside of [place] in the past 14 days. Patient denies any contact with someone who has a confirmed diagnosis of or is under investigation for COVID-19 in the past 14 days. Patient has been tested negative for COVID- 19. PAST MEDICAL HISTORY DM2 HTN HLD Dyslipidemia Syncope Rhabdomylosis PAST SURGICAL HISTORY: Craniotomy Excision Tumor 05/04/2021 Procedure w/ Stealth 05/04/2021 Left Frontal Meningioma Resection 05/05/2021 MEDICATION ALLERGIES: No Known Drug Allergies (NKDA) ENVIRONMENTAL ALLERGIES: None Known - Substance Allergies None Known - Other Allergies None Known CODE STATUS: Full code WEIGHT/HEIGHT/BMI: WEIGHT 183 lbs HEIGHT 5' 2" BMI 33.5 DIET: - Diet Type Regular - Diet - Solid Texture Regular - Diet - Liquid Texture Regular - Tube Feed N/A SKIN DIAGRAM: Surgical Site on Head; extent - small; stage - NS(Not Stageable). Treatment - Per Physician's Orders. REVIEW OF SYSTEMS: - Gen Alert and awake Lying in bed No apparent distress Oriented to: person, time, and place - Vital Signs Temperature: 97 F SBP/DBP: 136/70 Pulse: 89 Resp: 20 Vital signs stable, afebrile - CVS RRR VITAL SIGNS Temperature: 97 F SBP/DBP: 136/70 Pulse: 89 Resp: 20 Vital signs stable, afebrile Vitals taken within the last 24 hours per reports from case management in the [facility] center MEDICATIONS/TREATMENT: Other- See attached MAR (Medication Administration Record). CURRENT SPHINCTER CONTROL: Pre-hospital bladder status: unspecified # of bladder accidents in the last 7 days prior to screenin Pre-hospital bowel status: unspecified # of bowel accidents in the last 7 days prior to screenin Last Bowel Movement Date: 05/10/2021 CURRENT LOCOMOTION STATUS: distance walked 38 feet with RW DETAILED CURRENT FUNCTIONAL STATUS: - Bladder accident frequency: 7-Ind - No accidents in the past 7 days - Bowel accident frequency: 7-Ind - No accidents in the past 7 days - Walking score based on distance walked: 0(N/A) score based on distance walked: 1(<=50ft) - Wheelchair score based on distance traveled: 0(N/A) QI SCORES: - Self-Care A. Eating 05-Setup or clean-up assistance B. Oral hygiene 04-Supervision or touching assistance C. Toileting hygiene 03-Partial/moderate assistance E. Shower/bathe self 02-Substantial/maximal assistance F. Upper body dressing 03-Partial/moderate assistance G. Lower body dressing 03-Partial/moderate assistance H. Putting on/taking off footwear 02-Substantial/maximal assistance - Mobility A. Roll left and right 04-Supervision or touching assistance B. Sit to lying 04-Supervision or touching assistance C. Lying to sitting on side of bed 04-Supervision or touching assistance D. Sit to stand 04-Supervision or touching assistance E. Chair/vtb-fh-nvhiy transfer 04-Supervision or touching assistance F. Toilet transfer 03-Partial/moderate assistance G. Car transfer 88-Not attempted due to medical condition or safety concerns I. Walk 10 feet 04-Supervision or touching assistance J. Walk 50 feet with two turns 88-Not attempted due to medical condition or safety concerns K. Walk 150 feet 88-Not attempted due to medical condition or safety concerns L. Walking 10 feet on uneven surfaces 88-Not attempted due to medical condition or safety concerns M. 1 step (curb) 88-Not attempted due to medical condition or safety concerns N. 4 steps 88-Not attempted due to medical condition or safety concerns O. 12 steps 88-Not attempted due to medical condition or safety concerns P. Picking up object 88-Not attempted due to medical condition or safety concerns R. Wheel 50 feet with two turns 88-Not attempted due to medical condition or safety concerns S. Wheel 150 feet 88-Not attempted due to medical condition or safety concerns - Bladder and Bowel Bladder continence Bowel continence - Endurance Fair - Balance Fair - Safety Awareness Fair CURRENT FUNC. DEFICITS: Self-Care, Mobility, Endurance, Balance, and Safety Awareness CURRENT / PREVIOUS ASSISTIVE DEVICES: Rolling Walker HISTORY OF FALLS. HAS THE PATIENT HAD TWO OR MORE FALLS IN THE PAST YEAR OR ANY FALL WITH INJURY IN T HE PAST YEAR?: Unknown PRIOR SURGERY. DID THE PATIENT HAVE MAJOR SURGERY DURING THE 100 DAYS PRIOR TO ADMISSION?: Unknown THERAPY NOTES FROM ACUTE CARE: Attached. SPECIAL NEEDS: - Safety Concerns Fall precautions needed due to Poor balance Skin breakdown precautions needed due to skin breakdown risk PRECAUTIONS: - Fall Precaution Bed alarm PATIENT NEEDS ACTIVE AND ONGOING THERAPEUTIC INTERVENTION OF MULTIPLE THERAPY DISCIPLINES, INCLUDING: - Dietary and Nutrition Adequate Nutrition. Nutritional Education. Nutritional Supplements. - Occupational Therapy Cognitive Retraining. Visual Perceptual Training. UE Strengthening. ADL Training. Transfer Training. Household Tasks. UE ROM. Adaptive Equipment. Patient/Family Education. Community Reintegration. Safet y Awareness. - Speech Therapy Cognitive Training. Expressive Language Skills. Memory Strategies. Receptive Language Skills. Speech Intelligibility Training. - Physical Therapy Gait Training. Evaluate and Treat. Transfer Training. Mobility Training. Balance Training. LE Strengt hening. Patient/Family Education. LE ROM. Safety Awareness. PATIENT NEEDS CLOSE MEDICAL SUPERVISION BY A REHABILITATION PHYSICIAN FOR: Coordination of Treatment Team Medical and Co-Morbidity Management Pain Management Diabetes Management Post-Op Complications PATIENT REQUIRES 24X7 REHAB NURSING FOR MEDICAL AND FUNCTIONAL MGT. OF THE FOLLOWING DEFICITS: Disease Management Medication Management Patient/Family Education Providing Safe Environment Skin Integrity PATIENT REQUIRES INTENSIVE, COORDINATED INTERDISCIPLINARY APPROACH TO REHAB: Arranging Home Equipment/Services Discharge Planning Family Intervention/Training Fire Protection Specialist/Case Management PATIENT REHAB POTENTIAL: Ari FIGUEROA is able and expected to receive 3 hours of individualized therapy daily on at least 5 of e very 7 days Ari FIGUEROA's prognosis for significant practical improvement within a reasonable period of time appea rs Good Expected level of measurable improvement will be of a practical value to Ari FIGUEROA's functional capa city or adaptations to impairments Has a viable Discharge Plan Medically appropriate; condition is sufficiently stable to participate in intensive rehab program DISCHARGE PLAN: - Estimated Length of Stay (days) 13. - Consensus on plan Discharge plan has been discussed with primary caregiver. Patient/Family is in agreement with the ryley n. Primary caregiver is in agreement with the plan. - Patient/Family Goals Return home independently. - Planned Living Setting Upon Discharge Home, to live alone. Transitional Living. Primary caregiver: Pt self. RECOMMENDED CARE LEVEL: IRF RECOMMENDATION DETAILS: Recommended Admission to Comprehensive Rehabilitation Program to Increase Functional [place] SCREENER'S COMPLETENESS CONFIRMATION: - Screening Confirmation The patient data collection on this preadmission screening form is finished PHYSICIANS REVIEW AND ADMISSION DETERMINATION Admit - Based on my review of the Pre-Admission Screening results, in my medical judgment and experie nce, I concur with the findings and recommend admission to [facility], as this patient requires an IRF level of care. SIGNATURE PANEL: Clinical Liaison - [electronically] signed by ISRAEL Christopher on 05/11/2021 at 11:02 (CDT) Bsa/Aml Compliance Officer - [electronically] signed by Adan Hagan PT on 05/11/2021 at 11:03 (CDT) Physician Reviewer - [electronically] signed by Dr. Sanket Shine M.D. on 05/11/2021 at 11:23 (CDT )
[2021-05-11] MEDS ORDERED: ACETAMINOPHEN 500 MG TAB PO PRN (16:06)
[2021-05-11] MEDS ORDERED: HYDROCODONE/APAP 5/325 MG TAB PO PRN (16:13)
[2021-05-11] MEDS ORDERED: ONDANSETRON 4 MG (ODT) TAB PO PRN (16:14)
[2021-05-11] MEDS ORDERED: GLUCAGON 1 MG/VIAL IM PRN (16:16)
[2021-05-11] MEDS ORDERED: D50W 25 GM/50 ML SYRINGE IV PRN (16:16)
[2021-05-11] MEDS: INSULIN -REGULAR HUMAN 50 UNIT/0.5 ML ML SQ SCH ×2 (16:30→20:10)
[2021-05-11] MEDS: dexAMETHasone 4 MG TAB PO SCH ×2 (16:39→20:09)
[2021-05-11] MEDS: SODIUM CHLORIDE 1 GM TAB PO SCH (16:54)
[2021-05-11] MEDS: ATORVASTATIN 40 MG TAB PO SCH (20:09)
[2021-05-11] MEDS: DOCUSATE NA/SENNA CONC 1 TAB PO SCH (20:09)
[2021-05-11] MEDS: levETIRAcetam 500 MG TAB PO SCH (20:09)
[2021-05-11] MEDS: MELATONIN 3 MG TABLET PO PRN (20:10)
[2021-05-12 05:02] LABS: Absolute Lymphocytes (CBC) 0.8 K/uL (0.7-4.9); Basophils % 0.1 % (0-1.3); Hematocrit 30.4 % (36.0-45.0); Lymphocytes % 5.9 % (15.3-44.8); MPV 9.1 fL (7.6-11.3); RBC Red Blood Cell Count 3.53 M/uL (3.86-4.86)
[2021-05-12 05:18] LABS: BUN Blood Urea Nitrogen 18 mg/dL (7-18); Bicarbonate 28 mmol/L (21-32); Glucose Level 180 mg/dL (74-106); Magnesium 2.1 mg/dL (1.8-2.4); Potassium 4.3 mmol/L (3.5-5.1); Prealbumin 23.1 mg/dL (20-40); Sodium Level 135 mmol/L (136-145)
[2021-05-12] MEDS ORDERED: CALCIUM CARBONATE CHEW 500MG TAB PO PRN (06:16)
[2021-05-12 07:04] LABS: Blood Morphology Comment NOT SEEN (NOT SEEN); Platelet Estimate ADEQ
[2021-05-12] MEDS: INSULIN -REGULAR HUMAN 50 UNIT/0.5 ML ML SQ SCH ×4 (07:30→21:00)
[2021-05-12] MEDS: ENOXAPARIN 40 MG/0.4 ML SQ SCH (07:48)
[2021-05-12] MEDS: FAMOTIDINE 20 MG TAB PO SCH (07:51)
[2021-05-12] MEDS: POLYETHYL GLY 3350 17 GM/DOSE PO SCH (07:51)
[2021-05-12] MEDS: SODIUM CHLORIDE 1 GM TAB PO SCH ×3 (07:51→16:38)
[2021-05-12] MEDS: dexAMETHasone 4 MG TAB PO SCH ×2 (07:51→21:09)
[2021-05-12] MEDS: levETIRAcetam 500 MG TAB PO SCH ×2 (07:51→21:09)
[2021-05-12 09:37] LABS: Urine Appearance CLEAR (Clear); Urine Bilirubin NEGATIVE (Negative); Urine Blood NEGATIVE (Negative); Urine Color YELLOW (Yellow); Urine Glucose NEGATIVE (Negative); Urine Protein NEGATIVE (Negative); Urine Specific Gravity 1.015 (1.005-1.030); Urine pH 6.5 (5.0-7.0)
[2021-05-12 10:50] LABS: Urine Bacteria <20 /HPF (<20); Urine Mucus 1+ /HPF (NONE SEEN); Urine RBC <5 /HPF (NONE SEEN)
--- NOTE | 2021-05-12 20:36 | R.HP ---
HISTORY AND PHYSICAL FACILITY: [facility] ENCOUNTER DATE AND TIME: 05/12/2021 20:31 (CDT) MR#: [id number] NAME DIEGO FIGUEROA ADDRESS: [address] [place] [address] CITY: [place] [id number] PHONE: DATE OF : 1955 AGE: 65 SSN# [id number] GENDER: Female MARITAL STATUS PRE-HOSPITAL LIVING SETTING 01 - Home (private home/apt. board/care, assisted living, retirement, transitional living) PRE-HOSPITAL LIVING WITH Alone ENCOUNTER PHYSICIAN: Dr. Sanket Shine M.D. REFERRING DOCTOR: Dr. 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 is a 65 yo Right-handed HF. 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 Her impairment category is Brain Dysfunction 02 - Non-traumatic Brain Dysfunction (02.1). Pre-morbidly, Pt. was independent/mod-I in Locomotion, Safety Awareness, Social Cognition, Transfers Control, Sphincter Control, Endurance, and Communication; and she had good Locomotion, Safety Awarene ss, Balance, Transfers Control, Sphincter Control, Self-Care, Communication, and Endurance. Currently, she has deficits of Locomotion, Safety Awareness, Social Cognition, Balance, Transfers Con trol, Self-Care, Communication, and Endurance. Pt. is now referred to [facility] for acute in-patient rehabilitation in order to maximize patient's functional independence in activities of daily living, strength, ROM, and mobi lity. Patient has realistic goal of being discharged at assistance level 7-Ind to reside at Home with Pt s elf. Ms. Diego Figueroa is a 65 yo female with fall and syncope. She has a history of DM 2, HTN, HLD Who presented with syncope on Monday and [place] around [place] and called [place]. Sh howie is noted to be a poor historian. Pt may have fallen several days ago. CT brain w/o herniation. Leggett scan CT with contrast did not show cancer. She denied any CP or SOB. She denies dizziness, tingling, sensory change, speech change, focal weakness, seizures, loss of consciousness, weakness and headache s. Pt is currently working with PT. PT report: Pt demonstrates good progress with mobility. Patient w as able to perform supine to sit transfer with CGA and STS with GAURAV. Pt ambulated with RW and IV juan e 38 ft. Pt demonstrates a shuffling gate pattern with decreased step length and swing on LLE. Nimesh rs to progress include: s/p craniotomy, generalized weakness, intermittent confusion with complex dem ands. Pt requires assistance of intense acute IRF due to needing to safely discharge home at [facility]. Pt is recently from and has occasional help from family. Pt reports desire to return to independently completing IADL's and requiring less assistance from family/friends. With an interdisciplinary approach by acute IRF, pt. demonstrates great potential and motivation to get stronger, safer, and more independent to return to [facility]. It is reasonable and nec essary for the patient to come to acute IRF to safely dc. Pt is medically stable but in need of 24 hour nursing, doctor supervision, and oversight while receiving active and ongoing intensive (OT/PT/ST). The patient is reasonably expected to participate in 3 hours of therapy a day/15 hours a week. COVID-19 screening performed. Patient denies a new onset of fever, cough, difficulty breathing, sore throat, body aches and non-allergy nasal congestion in the past 24 hours. Patient denies travel outside of [place] in the past 14 days. Patient denies any contact with someone who has a confirmed diagnosis of or is under investigation for COVID-19 in the past 14 days. Patient has been tested negative for COVID- 19. MEDICATION ALLERGIES: No Known Drug Allergies (NKDA) ENVIRONMENTAL ALLERGIES: None Known - Substance Allergies None Known - Other Allergies None Known PAST MEDICAL HISTORY: DM2 HTN HLD Dyslipidemia Syncope Rhabdomylosis PAST SURGICAL HISTORY: Craniotomy Excision Tumor 05/04/2021 Procedure w/ Stealth 05/04/2021 Left Frontal Meningioma Resection 05/05/2021 SOCIAL HISTORY: - Home Living Alone REVIEW OF SYSTEMS: - Gen No Chills Fatigue No Fever - Eyes No Double Vision No itchiness - ENMT No Difficulty Swallowing - CVS No Chest Discomfort No Chest Pain Fatigue No Weight Gain - Resp No Cough No Shortness of Breath - GI Continent No Abdominal Pain No Constipation No Diarrhea - Continent No Kidney Pain No Painful Urination No Urinary Urgency - MSK No Joint Pain Muscle Cramps Stiffness - Skin No Itching No Rash No Suspicious Lesions - Neuro Coordination Difficulty No Difficulty with Concentration No Memory Loss No Seizures Weakness - Psych Anxiety No Depression No HIV Exposure No Persistent Infections No Seasonal Allergies - Endo No Cold/Heat Intolerance No Excessive Hunger No Excessive Thirst No Excessive Urination PHYSICAL EXAM - Gen Alert and awake Lying in bed No apparent distress Oriented to: person, time, and place - Skin No skin breakdown. Normacephalic Scalp surgical sites intact - Eyes No abnormalities - ENMT No abnormalities - Neck No abnormalities - CVS RRR - Chest No abnormalities - Resp Clear to auscultation - Abd Soft - GI Non distended Deferred - No abnormalities - Ext No significant edema - MSK 4/5 weakness in both lower extremities. - Neuro No focal deficits - Psych Mild anxiety. VITAL SIGNS Temperature: 97.4 F SBP/DBP: 116/56 Pulse: 68 Resp: 16 NURSING: - Shower allowing shower - Bladder care per protocol - Skin care per protocol PRECAUTIONS: - Fall Precaution Bed alarm ACTIVITIES OOB only with supervision QI SCORES: - Self-Care A. Eating 05-Setup or clean-up assistance B. Oral hygiene 04-Supervision or touching assistance C. Toileting hygiene 03-Partial/moderate assistance E. Shower/bathe self 02-Substantial/maximal assistance F. Upper body dressing 03-Partial/moderate assistance G. Lower body dressing 03-Partial/moderate assistance H. Putting on/taking off footwear 02-Substantial/maximal assistance - Mobility A. Roll left and right 04-Supervision or touching assistance B. Sit to lying 04-Supervision or touching assistance C. Lying to sitting on side of bed 04-Supervision or touching assistance D. Sit to stand 04-Supervision or touching assistance E. Chair/lmo-md-umqen transfer 04-Supervision or touching assistance F. Toilet transfer 03-Partial/moderate assistance G. Car transfer 88-Not attempted due to medical condition or safety concerns I. Walk 10 feet 04-Supervision or touching assistance J. Walk 50 feet with two turns 88-Not attempted due to medical condition or safety concerns K. Walk 150 feet 88-Not attempted due to medical condition or safety concerns L. Walking 10 feet on uneven surfaces 88-Not attempted due to medical condition or safety concerns M. 1 step (curb) 88-Not attempted due to medical condition or safety concerns N. 4 steps 88-Not attempted due to medical condition or safety concerns O. 12 steps 88-Not attempted due to medical condition or safety concerns P. Picking up object 88-Not attempted due to medical condition or safety concerns R. Wheel 50 feet with two turns 88-Not attempted due to medical condition or safety concerns S. Wheel 150 feet 88-Not attempted due to medical condition or safety concerns - Bladder and Bowel Bladder continence Bowel continence - Endurance Fair - Balance Fair - Safety Awareness Fair CURRENT FUNC. DEFICITS: Self-Care, Mobility, Endurance, Balance, and Safety Awareness MEDICATIONS: - Other See attached MAR (Medication Administration Record) ASSESSMENT: Pt. 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 was independent/mo d-I in Locomotion, Safety Awareness, Social Cognition, Transfers Control, Sphincter Control, Enduranc e, and Communication; and she had good Locomotion, Safety Awareness, Balance, Transfers Control, Sphi ncter Control, Self-Care, Communication, and Endurance.Currently, she has deficits of Locomotion, Saf ety Awareness, Social Cognition, Balance, Transfers Control, Self-Care, Communication, and Endurance. Pt. is now referred to [facility] for acute in-patient rehabilitation in order to maximize patient's functional independence in activities of daily living, strength, ROM, and mobi lity.- Rehab Goal Patient has realistic goal of being discharged at assistance level 7-Ind to reside at Home with Pt s elf. Ms. Diego Figueroa is a 65 yo female with fall and syncope. She has a history of DM 2, HTN, HLD Who presented with syncope on Monday and found [place] around [place] and called [place]. Sh howie is noted to be a poor historian. Pt may have fallen several days ago. CT brain w/o herniation. Leggett scan CT with contrast did not show cancer. She denied any CP or SOB. She denies dizziness, tingling, sensory change, speech change, focal weakness, seizures, loss of consciousness, weakness and headache s. Pt is currently working with PT. PT report: Pt demonstrates good progress with mobility. Patient w as able to perform supine to sit transfer with CGA and STS with GAURAV. Pt ambulated with RW and IV juan e 38 ft. Pt demonstrates a shuffling gate pattern with decreased step length and swing on LLE. Nimesh rs to progress include: s/p craniotomy, generalized weakness, intermittent confusion with complex dem ands. Pt requires assistance of intense acute IRF due to needing to safely discharge home at [facility]. Pt is recently from and has occasional help from family. Pt reports desire to return to independently completing IADL's and requiring less assistance from family/friends. With an interdisciplinary approach by acute IRF, pt. demonstrates great potential and motivation to get stronger, safer, and more independent to return to [facility]. It is reasonable and nec essary for the patient to come to acute IRF to safely dc. Pt is medically stable but in need of 24 hour nursing, doctor supervision, and oversight while receiving active and ongoing intensive (OT/PT/ST). The patient is reasonably expected to participate in 3 hours of therapy a day/15 hours a week. COVID-19 screening performed. Patient denies a new onset of fever, cough, difficulty breathing, sore throat, body aches and non-allergy nasal congestion in the past 24 hours. Patient denies travel outside of [place] in the past 14 days. Patient denies any contact with someone who has a confirmed diagnosis of or is under investigation for COVID-19 in the past 14 days. Patient has been tested negative for COVID- 19.REHAB PLAN: - Physical Therapy Gait dysfunction - to improve, our physical therapists will perform initial evaluation of pt's status upon admission and devise an individualized program for Gait Training, and Wheel Chair mobility Inability to transfer - to improve, our physical therapists will perform initial evaluation of pt's s tatus upon admission and devise an individualized program for Bed mobility Need for home safety evaluation - to improve, our physical therapists will perform initial evaluation of pt's status upon admission and devise an individualized program for Home Evaluation Need in caregiver upon discharge - to improve, our physical therapists will perform initial evaluatio n of pt's status upon admission and devise an individualized program for Caregiver Training New precaution - to improve, our physical therapists will perform initial evaluation of pt's status u kari admission and devise an individualized program for Patient precaution education Edema - to improve, our physical therapists will perform initial evaluation of pt's status upon admi ssion and devise an individualized program for Elevation Training, and Lymphedema Therapy Poor balance - to improve, our physical therapists will perform initial evaluation of pt's status upo n admission and devise an individualized program for Balance Training Poor endurance - to improve, our physical therapists will perform initial evaluation of pt's status u kari admission and devise an individualized program for Endurance Training Weakness - to improve, our physical therapists will perform initial evaluation of pt's status upon ad mission and devise an individualized program for Aquatic Therapy, Neuromuscular Reeducation, and Stre ngthening Achieving independence - to improve, our physical therapists will perform initial evaluation of pt's status upon admission and devise an individualized program for Community Reintegration Activities - Occupational Therapy ADL deficits - to improve, our occupation therapists will perform initial evaluation of pt's status u kari admission and devise an individualized program for Bathing, Bed mobility, Community Reintegration , Cooking, Dressing, Eating, Fine Motor Skills, Grooming, Homemaking, Kitchen Mobility, Laundry, Silvina ent Education, Safety Awareness, Splinting - Positioning, Transfers(Toilet, Tub, Shower), and Wheel C hair Management Cognitive deficits - to improve, our occupation therapists will perform initial evaluation of pt's st atus upon admission and devise an individualized program for Cognition - orientation Need for animal care giver - to improve, our occupation therapists will perform initial evaluation of pt's s tatus upon admission and devise an individualized program for Caregiver Training Weakness - to improve, our occupation therapists will perform initial evaluation of pt's status upon admission and devise an individualized program for Aquatic Therapy, Balance, Endurance, UE ROM, and U E strengthening MEDICAL PLAN: - Diet Type Start Regular - Diet - Liquid Texture Start Regular - Tube Feed Start N/A - Bladder care per protocol - Fall Precaution Bed alarm TABS alarm Wheel chair alarm - Skin care per protocol - Other See attached MAR (Medication Administration Record) - Diet - Solid Texture Regular - Shower shower DISCHARGE PLAN: - Estimated Length of Stay (days) 13. - Consensus on plan Discharge plan has been discussed with primary caregiver. Patient/Family is in agreement with the ryley n. Primary caregiver is in agreement with the plan. - Patient/Family Goals Return home independently. - Planned Living Setting Upon Discharge Home, to live alone. Transitional Living. Primary caregiver: Pt self. SIGNATURE PANEL: (CDT)
--- NOTE | 2021-05-12 20:37 | PAPE ---
POST ADMISSION PHYSICIAN EVALUATION PATIENT: [facility] MR# [id number] REFERRING DOCTOR Dr. Giovani White EVALUATION DATE AND TIME 05/12/2021 20:36 (CDT) NAME DIEGO DAY DATE OF 1955 AGE 65 PHONE N# [id number] GENDER female EVALUATING PHYSICIAN Dr. Sanket Shine M.D. 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 PATIENT NEEDS CLOSE MEDICAL SUPERVISION BY A REHABILITATION PHYSICIAN FOR: Coordination of Treatment Team Medical and Co-Morbidity Management Pain Management Diabetes Management Post-Op Complications PATIENT REQUIRES 24X7 REHAB NURSING FOR MEDICAL AND FUNCTIONAL MGT. OF THE FOLLOWING DEFICITS: Disease Management Medication Management Patient/Family Education Providing Safe Environment Skin Integrity PATIENT REQUIRES INTENSIVE, COORDINATED INTERDISCIPLINARY APPROACH TO REHAB: Arranging Home Equipment/Services Discharge Planning Family Intervention/Training Credit Assistant/Case Management LIST OF IDENTIFIED AND POTENTIAL PROBLEMS: Alteration in leisure activities Bladder, Incontinence Bowel, Incontinence Falls, Actual or Potential Infection, Actual or Potential Mobility Impaired Pain, Alteration in Comfort Self Care Deficit Skin Integrity, Actual or Potential Urinary Tract Infection (UTI), Actual or Potential RISK FOR COMPLICATIONS - DVT KEVIN hose; sequential compression device as needed/prescribed. Routine checks/assessments of pt. - UTI Monitor for frequency, burning, discomfort, or incontinence. - PNA Clinical staff to encourage OOB movements/tasks/activities. Clinical staff to encourage breathing exe rcises. - Skin Breakdown Nursing will assess skin daily using assessment tool and will place on Skin Breakdown Precautions as Indicated per protocol. - Pain Medications will be given and the pain level reassessed. Clinical Staff may employ other methods such as: massage, distraction, decrease stimulus, etc. as needed. Clinical staff will assess patient's pa in level every shift per protocol to monitor for pain management effectiveness. Educate patient on pa in management strategies. - Falls Educated pt on fall prevention strategies to reduce/eliminate fall risk. Patient will be evaluated fo r Fall Precautions and will be placed on Fall Precautions as indicated per protocol. - Infection Worsening infection. - Impaired Safety Educate patient on safety hazards. Educate patient on safety awareness strategies. - Anxiety Clinical staff will take time to explain any procedures, POC, and course of current tx. - Bleeding Monitor lab values. - Limb Ischemia Assess circulation each shift. Report any changes to MD. INTERVENTIONS - Safety Awareness fall prevention. Assessment of vitals. medication managment. - Ambulation Out of bed movement. PATIENT COULD BE AT RISK FOR COMPLICATIONS FROM ADVERSE MEDICAL CONDITIONS DUE TO HIS/HER COMORBIDITI ES AND THE RIGORS OF THE INTENSIVE REHABILLITATION PROGRAM. METHODS OR INTERVENTIONS TO AVOID COMPLIC ATIONS INCLUDE: - Infection Clinical staff to assess and manage the signs and symptoms of infection including fever, redness, war mth, etc. - Urinary Tract Infection - Falls Patient will be evaluated for Fall Precautions and will be placed on Fall Precautions as indicated pe r protocol. - Skin Breakdown Nursing will assess skin daily using assessment tool and will place on Skin Breakdown Precautions as indicated per protocol. - Pain Clinical staff may employ non-medication methods such as massage, distraction, decrease stimulus, etc . as needed. Clinical staff will assess patient's pain level every shift per protocol to assess and e nsure pain management effectiveness. Medications will be given and the pain level re-assessed. PRELIMINARY PLAN OF CARE: - Physical Therapy Patient needs Physical Therapy for a daily minimum of 1.5 hours at least 5 out of 7 days, to improve: Mobility, Strengthening, Transfers, Stretching, ROM, Endurance, Ability to manage stairs, Gait, and Balance. - Speech Therapy Patient needs Speech Therapy for a daily minimum of 0.5 hours at least 5 out of 7 days, to improve: S wallowing, Cognition, Language Skills, and Compensatory Strategies. - Rehabilitation Nursing Patient requires 24x7 Rehabilitation Nursing for: Pain Issues, Identifying and preventing risk factor s, Monitoring and reporting current medical conditions, Assisting with ambulation and transfer, Ruth ting with all ADL-s, Teaching patients about disease process and medications, Family teaching, Provid ing safe environment, Bowel and Bladder Issues, Skin Integrity, and Medication Management. Patient needs Credit Assistant and/or Case Management for: Discharge Planning, Arranging Home Equipmen t or Services, and Family Interventions. - Dietary and Nutrition Services Patient needs Dietary and Nutrition Services for: Adequate Nutrition, Nutritional Supplements, and Nu tritional Education. - Occupational Therapy Patient needs Occupational Therapy for a daily minimum of 1.5 hours at least 5 out of 7 days, to impr ove Activities of Daily Living, including: Eating, Grooming, Bathing, Dressing, Toileting, Toilet Tra nsfers, Community Reintegration, Higher functional activities, Adaptive Equipment, Splinting, Househo ld Tasks, and Other activities as determined. QI SCORES: - Self-Care A. Eating 05-Setup or clean-up assistance B. Oral hygiene 04-Supervision or touching assistance C. Toileting hygiene 03-Partial/moderate assistance E. Shower/bathe self 02-Substantial/maximal assistance F. Upper body dressing 03-Partial/moderate assistance G. Lower body dressing 03-Partial/moderate assistance H. Putting on/taking off footwear 02-Substantial/maximal assistance - Mobility A. Roll left and right 04-Supervision or touching assistance B. Sit to lying 04-Supervision or touching assistance C. Lying to sitting on side of bed 04-Supervision or touching assistance D. Sit to stand 04-Supervision or touching assistance E. Chair/umo-sy-spmoq transfer 04-Supervision or touching assistance F. Toilet transfer 03-Partial/moderate assistance G. Car transfer 88-Not attempted due to medical condition or safety concerns I. Walk 10 feet 04-Supervision or touching assistance J. Walk 50 feet with two turns 88-Not attempted due to medical condition or safety concerns K. Walk 150 feet 88-Not attempted due to medical condition or safety concerns L. Walking 10 feet on uneven surfaces 88-Not attempted due to medical condition or safety concerns M. 1 step (curb) 88-Not attempted due to medical condition or safety concerns N. 4 steps 88-Not attempted due to medical condition or safety concerns O. 12 steps 88-Not attempted due to medical condition or safety concerns P. Picking up object 88-Not attempted due to medical condition or safety concerns R. Wheel 50 feet with two turns 88-Not attempted due to medical condition or safety concerns S. Wheel 150 feet 88-Not attempted due to medical condition or safety concerns - Bladder and Bowel Bladder continence Bowel continence - Endurance Fair - Balance Fair - Safety Awareness Fair POTENTIAL FUNCTIONAL GOALS FOR PATIENT TO ACHIEVE BY DISCHARGE: - Safety Precaution Patient will remain free from falls or injury at time of discharge. - Bed Mobility Patient will perform bed mobility at 4-Minda level of assistance. - Transfers Patient will complete transfers from bed to chair at 4-Minda level of assistance. - Mobility Patient will ambulate 150 ft with 4-Minda level of assistance with RW. PATIENT REHAB POTENTIAL Ari DAY is able and expected to receive 3 hours of individualized therapy daily on at least 5 of e very 7 days Ari DAY's prognosis for significant practical improvement within a reasonable period of time appea rs Good Expected level of measurable improvement will be of a practical value to Ari DAY's functional capa city or adaptations to impairments Has a viable Discharge Plan Medically appropriate; condition is sufficiently stable to participate in intensive rehab program DISCHARGE PLAN: - Estimated Length of Stay (days) 13. - Consensus on plan Discharge plan has been discussed with primary caregiver. Patient/Family is in agreement with the ryley n. Primary caregiver is in agreement with the plan. - Patient/Family Goals Return home independently. - Planned Living Setting Upon Discharge Home, to live alone. Transitional Living. Primary caregiver: Pt self. CONCLUSION ON REHABILITATION NECESSITY: I have evaluated patient's pre-admission functional status and, comparing it to the patient's post-ad mission functional status now, I conclude that the pre-admission assessment was accurate. Patient's c ondition on admission supports the medical necessity of admission to IRF. It is safe to proceed with patient's therapy program. SIGNATURE PANEL: (CDT)
[2021-05-12] MEDS: DOCUSATE NA/SENNA CONC 1 TAB PO SCH (21:08)
[2021-05-12] MEDS: ATORVASTATIN 40 MG TAB PO SCH (21:09)
[2021-05-12] MEDS: MELATONIN 3 MG TABLET PO PRN (21:09)
[2021-05-13 04:46] LABS: Absolute Lymphocytes (CBC) 0.8 K/uL (0.7-4.9); Basophils % 0.1 % (0-1.3); Hematocrit 29.9 % (36.0-45.0); Lymphocytes % 6.6 % (15.3-44.8); MPV 9.2 fL (7.6-11.3); RBC Red Blood Cell Count 3.43 M/uL (3.86-4.86)
[2021-05-13 05:04] LABS: Albumin 2.9 g/dL (3.4-5.0); Potassium 4.3 mmol/L (3.5-5.1); Prealbumin 22.6 mg/dL (20-40)
[2021-05-13] MEDS: ENOXAPARIN 40 MG/0.4 ML SQ SCH (07:27)
[2021-05-13] MEDS: INSULIN -REGULAR HUMAN 50 UNIT/0.5 ML ML SQ SCH ×4 (07:30→20:00)
[2021-05-13] MEDS: POLYETHYL GLY 3350 17 GM/DOSE PO SCH (08:29)
[2021-05-13] MEDS: FAMOTIDINE 20 MG TAB PO SCH (08:30)
[2021-05-13] MEDS: levETIRAcetam 500 MG TAB PO SCH ×2 (08:31→20:00)
[2021-05-13] MEDS: SODIUM CHLORIDE 1 GM TAB PO SCH ×3 (08:31→17:05)
[2021-05-13] MEDS: dexAMETHasone 4 MG TAB PO SCH ×2 (08:33→20:00)
--- NOTE | 2021-05-13 18:19 | R.PN ---
PROGRESS NOTES ENCOUNTER DATE AND TIME: 05/13/2021 18:12 (CDT) NAME DIEGO DAY DATE OF : 1955 DATE OF ADMISSION: 05/11/2021 15:00 (CDT) D32.9 Benign Neoplasm of Cerebral MeningesCHIEF COMPLAINT: Status post benign neoplasm removal and weakness with ataxic gait. SUBJECTIVE: Pt denied any depression. Pt denied any Shortness of Breath. WBC 12.4, neutrophils 88.4, glucose 92 to 232, prealbumin 22.6. Ambulated 750' with contact guard assistance using a rolling walker. VITAL SIGNS Temperature: 97.4 F SBP/DBP: 116/56 Pulse: 68 Resp: 16 MEDICATION ALLERGIES: No Known Drug Allergies (NKDA) ENVIRONMENTAL ALLERGIES: None Known - Substance Allergies None Known - Other Allergies None Known NURSING: - Shower allowing shower - Bladder care per protocol - Skin care per protocol PRECAUTIONS: - Fall Precaution Bed alarm ACTIVITIES OOB only with supervision THERAPIES: - Dietary and Nutrition Adequate Nutrition. Nutritional Education. Nutritional Supplements. - Occupational Therapy Cognitive Retraining. Visual Perceptual Training. UE Strengthening. ADL Training. Transfer Training. Household Tasks. UE ROM. Adaptive Equipment. Patient/Family Education. Community Reintegration. Safet y Awareness. - Speech Therapy Cognitive Training. Expressive Language Skills. Memory Strategies. Receptive Language Skills. Speech Intelligibility Training. - Physical Therapy Gait Training. Evaluate and Treat. Transfer Training. Mobility Training. Balance Training. LE Strengt hening. Patient/Family Education. LE ROM. Safety Awareness. PHYSICAL EXAM - Gen Alert and awake Lying in bed No apparent distress Oriented to: person, time, and place - Skin No skin breakdown. Normacephalic Scalp surgical sites intact - Eyes No abnormalities - ENMT No abnormalities - Neck No abnormalities - CVS RRR - Chest No abnormalities - Resp Clear to auscultation - Abd Soft - GI Non distended Deferred - No abnormalities - Ext No significant edema - MSK 4/5 weakness in both lower extremities. - Neuro No focal deficits - Psych Mild anxiety. ASSESSMENT: Pt. is a 65 yo Right-handed HF.On 05/01/[address] 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 was independent/mo d-I in Locomotion, Safety Awareness, Social Cognition, Transfers Control, Sphincter Control, Enduranc e, and Communication; and she had good Locomotion, Safety Awareness, Balance, Transfers Control, Sphi ncter Control, Self-Care, Communication, and Endurance.Currently, she has deficits of Locomotion, Saf ety Awareness, Social Cognition, Balance, Transfers Control, Self-Care, Communication, and Endurance. Pt. is now referred to [facility] for acute in-patient rehabilitation in order to maximize patient's functional independence in activities of daily living, strength, ROM, and mobi lity.- Rehab Goal Patient has realistic goal of being discharged at assistance level 7-Ind to reside at Home with Pt s elf. MDM/PLAN: - Physical Therapy Gait dysfunction - to improve, our physical therapists will perform initial evaluation of pt's statu s upon admission and devise an individualized program for Gait Training, and Wheel Chair mobility Inability to transfer - to improve, our physical therapists will perform initial evaluation of pt's status upon admission and devise an individualized program for Bed mobility Need for home safety evaluation - to improve, our physical therapists will perform initial evaluatio n of pt's status upon admission and devise an individualized program for Home Evaluation Need in caregiver upon discharge - to improve, our physical therapists will perform initial evaluati on of pt's status upon admission and devise an individualized program for Caregiver Training New precaution - to improve, our physical therapists will perform initial evaluation of pt's status upon admission and devise an individualized program for Patient precaution education Edema - to improve, our physical therapists will perform initial evaluation of pt's status upon admis higinio and devise an individualized program for Elevation Training, and Lymphedema Therapy Poor balance - to improve, our physical therapists will perform initial evaluation of pt's status up on admission and devise an individualized program for Balance Training Poor endurance - to improve, our physical therapists will perform initial evaluation of pt's status upon admission and devise an individualized program for Endurance Training Weakness - to improve, our physical therapists will perform initial evaluation of pt's status upon a dmission and devise an individualized program for Aquatic Therapy, Neuromuscular Reeducation, and Str engthening Achieving independence - to improve, our physical therapists will perform initial evaluation of pt's status upon admission and devise an individualized program for Community Reintegration Activities - Occupational Therapy ADL deficits - to improve, our occupation therapists will perform initial evaluation of pt's status upon admission and devise an individualized program for Bathing, Bed mobility, Community Reintegratio n, Cooking, Dressing, Eating, Fine Motor Skills, Grooming, Homemaking, Kitchen Mobility, Laundry, Pat ient Education, Safety Awareness, Splinting - Positioning, Transfers(Toilet, Tub, Shower), and Wheel Chair Management Cognitive deficits - to improve, our occupation therapists will perform initial evaluation of pt's s tatus upon admission and devise an individualized program for Cognition - orientation Need for health care consultant - to improve, our occupation therapists will perform initial evaluation of pt's status upon admission and devise an individualized program for Caregiver Training Weakness - to improve, our occupation therapists will perform initial evaluation of pt's status upon admission and devise an individualized program for Aquatic Therapy, Balance, Endurance, UE ROM, and UE strengthening - Other See attached MAR (Medication Administration Record) - Diet Type Continue Regular - Diet - Liquid Texture Continue Regular - Tube Feed Continue N/A - Bladder care per protocol - Fall Precaution Bed alarm TABS alarm Wheel chair alarm - Skin care per protocol - Diet - Solid Texture Continue Regular - Shower allowing shower FUNCTIONAL STATUS: UPDATED AT WEEKLY TEAM CONFERENCE - Bladder Same accident frequency: 7-Ind - No accidents in the past 7 days - Bowel Same accident frequency: 7-Ind - No accidents in the past 7 days - Walking Same score based on distance walked: 0(N/A) Same score based on distance walked: 1(<=50ft) - Wheelchair Same score based on distance traveled: 0(N/A) FUNCTIONAL STATUS: - Self-Care A. Eating Ind B. Grooming Yasir C. Bathing sup D. Dressing - Upper sup E. Dressing - Lower Minda F. Toileting Minda - Sphincter Control G. Bladder control Yasir H. Bowel control Yasir - Transfers Control I. Bed/Chair/Wheelchair sup J. Toilet sup K. Tub/Shower Minda - Locomotion L. Walk/Wheelchair (B) Minda M. Stairs modA - Communication N. Comprehension (B) Yasir O. Expression (B) Yasir - Social Cognition P. Social Interaction Yasir Q. Problem Solving Yasir R. Memory Yasir - Endurance Good - Balance Good - Safety Awareness Fair QI SCORES: - Self-Care A. Eating 05-Setup or clean-up assistance B. Oral hygiene 04-Supervision or touching assistance C. Toileting hygiene 03-Partial/moderate assistance E. Shower/bathe self 02-Substantial/maximal assistance F. Upper body dressing 03-Partial/moderate assistance G. Lower body dressing 03-Partial/moderate assistance H. Putting on/taking off footwear 02-Substantial/maximal assistance - Mobility A. Roll left and right 04-Supervision or touching assistance B. Sit to lying 04-Supervision or touching assistance C. Lying to sitting on side of bed 04-Supervision or touching assistance D. Sit to stand 04-Supervision or touching assistance E. Chair/lrt-cf-pgutm transfer 04-Supervision or touching assistance F. Toilet transfer 03-Partial/moderate assistance G. Car transfer 88-Not attempted due to medical condition or safety concerns I. Walk 10 feet 04-Supervision or touching assistance J. Walk 50 feet with two turns 88-Not attempted due to medical condition or safety concerns K. Walk 150 feet 88-Not attempted due to medical condition or safety concerns L. Walking 10 feet on uneven surfaces 88-Not attempted due to medical condition or safety concerns M. 1 step (curb) 88-Not attempted due to medical condition or safety concerns N. 4 steps 88-Not attempted due to medical condition or safety concerns O. 12 steps 88-Not attempted due to medical condition or safety concerns P. Picking up object 88-Not attempted due to medical condition or safety concerns R. Wheel 50 feet with two turns 88-Not attempted due to medical condition or safety concerns S. Wheel 150 feet 88-Not attempted due to medical condition or safety concerns - Bladder and Bowel Bladder continence Bowel continence - Endurance Fair - Balance Fair - Safety Awareness Fair [facility] DEFICITS: Self-Care, Mobility, Endurance, Balance, and Safety Awareness SIGNATURE PANEL: (CDT)
[2021-05-13] MEDS: DOCUSATE NA/SENNA CONC 1 TAB PO SCH (19:59)
[2021-05-13] MEDS: ATORVASTATIN 40 MG TAB PO SCH (20:00)
[2021-05-13] MEDS: MELATONIN 3 MG TABLET PO PRN (20:00)
[2021-05-14] MEDS: INSULIN -REGULAR HUMAN 50 UNIT/0.5 ML ML SQ SCH ×4 (07:30→20:12)
[2021-05-14] MEDS: SODIUM CHLORIDE 1 GM TAB PO SCH ×3 (09:04→17:15)
[2021-05-14] MEDS: dexAMETHasone 4 MG TAB PO SCH ×3 (09:05→19:55)
[2021-05-14] MEDS: FAMOTIDINE 20 MG TAB PO SCH (09:06)
[2021-05-14] MEDS: POLYETHYL GLY 3350 17 GM/DOSE PO SCH (09:07)
[2021-05-14] MEDS: ENOXAPARIN 40 MG/0.4 ML SQ SCH (09:07)
[2021-05-14] MEDS: levETIRAcetam 500 MG TAB PO SCH ×2 (09:07→19:55)
--- NOTE | 2021-05-14 09:55 | P.RH.PN ---
Estimated Length of Stay: 13 Expected Discharge Date: 05/23/21 Discharge Disposition Plan: Home Family Support: Yes Group Home Goal: Mobility, Transfers, Self Care Vital Signs: Last Vital Signs Temp 96.8 F 05/14/21 08:00 Pulse 59 05/14/21 08:00 Resp 16 05/14/21 08:00 BP 112/57 L 05/14/21 08:00 Pulse Ox 98 05/14/21 08:00 Laboratory: Laboratory Last Values WBC 12.40 K/uL (4.3-10.9) H 05/13/21 04:16 RBC 3.43 M/uL (3.86-4.86) L 05/13/21 04:16 Hgb 10.4 g/dL (12.0-15.0) L 05/13/21 04:16 Hct 29.9 % (36.0-45.0) L 05/13/21 04:16 MCV 87.4 fL (80-100) 05/13/21 04:16 MCH 30.3 pg (27.0-35.0) 05/13/21 04:16 MCHC 34.7 g/dL (32.0-36.0) 05/13/21 04:16 RDW 14.3 % (12.1-15.2) 05/13/21 04:16 Plt Count 228 K/uL (152-406) 05/13/21 04:16 MPV 9.2 fL (7.6-11.3) 05/13/21 04:16 Neutrophils % 88.4 % (41.7-73.7) H 05/13/21 04:16 Lymphocytes % 6.6 % (15.3-44.8) L 05/13/21 04:16 Monocytes % 4.9 % (3.3-12.3) 05/13/21 04:16 Eosinophils % 0.0 % (0-4.4) 05/13/21 04:16 Basophils % 0.1 % (0-1.3) 05/13/21 04:16 Absolute Neutrophils 11.0 K/uL (1.8-8.0) H 05/13/21 04:16 Segmented Neutrophils 78 % (40-80) 05/12/21 04:37 Absolute Lymphocytes 0.8 K/uL (0.7-4.9) 05/13/21 04:16 Lymphocytes 9 % (15-42) L 05/12/21 04:37 Monocytes 13 % (0-10) H 05/12/21 04:37 Absolute Monocytes 0.6 K/uL (0.1-1.3) 05/13/21 04:16 Absolute Eosinophils 0.0 K/uL (0-0.5) 05/13/21 04:16 Absolute Basophils 0.0 K/uL (0-0.5) 05/13/21 04:16 Platelet Estimate Adeq 05/12/21 04:37 Morphology Comment Not seen (NOT SEEN) 05/12/21 04:37 Sodium 135 mmol/L (136-145) L 05/13/21 04:16 Potassium 4.3 mmol/L (3.5-5.1) 05/13/21 04:16 Chloride 102 mmol/L (98-107) 05/13/21 04:16 Carbon Dioxide 26 mmol/L (21-32) 05/13/21 04:16 BUN 21 mg/dL (7-18) H 05/13/21 04:16 Creatinine 0.68 mg/dL (0.55-1.3) 05/13/21 04:16 Estimated GFR 87 mL/min (=/>90) L 05/13/21 04:16 Glucose 232 mg/dL (74-106) H 05/13/21 04:16 POC Glucose 148 mg/dL (65-120) H 05/14/21 07:53 Calcium 8.3 mg/dL (8.5-10.1) L 05/13/21 04:16 Magnesium 2.0 mg/dL (1.8-2.4) 05/13/21 04:16 Albumin 2.9 g/dL (3.4-5.0) L 05/13/21 04:16 Prealbumin 22.6 mg/dL (20-40) 05/13/21 04:16 Urine Color Yellow (Yellow) 05/12/21 09:00 Urine Appearance Clear (Clear) 05/12/21 09:00 Urine pH 6.5 (5.0-7.0) 05/12/21 09:00 Ur Specific [place] 1.015 (1.005-1.030) 05/12/21 09:00 Glucose (UA)(Auto) Negative (Negative) 05/12/21 09:00 Urine Ketones Negative (Negative) 05/12/21 09:00 Urine Blood Negative (Negative) 05/12/21 09:00 Urine Nitrite Negative (Negative) 05/12/21 09:00 Urine Bilirubin Negative (Negative) 05/12/21 09:00 Urine Urobilinogen 1.0 mg/dL (0.2-1.0) 05/12/21 09:00 Ur Leukocyte Esterase Negative (Negative) 05/12/21 09:00 Urine RBC <5 /HPF (NONE SEEN) 05/12/21 09:00 Urine WBC <5 /HPF (<5) 05/12/21 09:00 Ur Squamous Epith Cells 5-10 /HPF (NONE SEEN) H 05/12/21 09:00 Urine Bacteria <20 /HPF (<20) 05/12/21 09:00 Urine Mucus 1+ /HPF (NONE SEEN) 05/12/21 09:00 Urine Culture Reflexed Not needed 05/12/21 09:00 Urine Total Protein Negative (Negative) 05/12/21 09:00 SARS-CoV-2 Rap RNA(RT-PCR) Negative (NEGATIVE) 05/11/21 17:40 Weight: 172 lb 6.4 oz Closed Surgical Incision Present: Yes Physician Update: Her labs were reviewed and are stable. She is high level functioning at min to supervision with ADLs. She still has memory and problem solving issues. She will go home by herself but her daughter is available to help at night. 18/30 on the MOCA with poor auditory comprehension. She has an aphasia. Walking 500' with SBA, transfers CGA. Summary: Patient's care plan and chcf goals have been reviewed and revised as necessary. Please see the Rehabilitation Signature page for all necessary signatures.
[2021-05-14] MEDS: ATORVASTATIN 40 MG TAB PO SCH (19:55)
[2021-05-14] MEDS: MELATONIN 3 MG TABLET PO PRN (19:56)
[2021-05-14] MEDS: DOCUSATE NA/SENNA CONC 1 TAB PO SCH (19:56)
[2021-05-15 05:41] VITALS: BMI 31.6
[2021-05-15] MEDS: INSULIN -REGULAR HUMAN 50 UNIT/0.5 ML ML SQ SCH ×4 (07:30→20:39)
[2021-05-15] MEDS: ENOXAPARIN 40 MG/0.4 ML SQ SCH (09:21)
[2021-05-15] MEDS: dexAMETHasone 4 MG TAB PO SCH ×2 (09:21→20:39)
[2021-05-15] MEDS: SODIUM CHLORIDE 1 GM TAB PO SCH ×3 (09:21→17:28)
[2021-05-15] MEDS: POLYETHYL GLY 3350 17 GM/DOSE PO SCH (09:22)
[2021-05-15] MEDS: FAMOTIDINE 20 MG TAB PO SCH (09:22)
[2021-05-15] MEDS: levETIRAcetam 500 MG TAB PO SCH ×2 (09:22→20:39)
[2021-05-15] MEDS: ATORVASTATIN 40 MG TAB PO SCH (20:39)
[2021-05-15] MEDS: DOCUSATE NA/SENNA CONC 1 TAB PO SCH (20:39)
[2021-05-15] MEDS: MELATONIN 3 MG TABLET PO PRN (20:40)
[2021-05-16] MEDS: ENOXAPARIN 40 MG/0.4 ML SQ SCH (07:13)
[2021-05-16] MEDS: INSULIN -REGULAR HUMAN 50 UNIT/0.5 ML ML SQ SCH ×4 (07:30→19:52)
[2021-05-16] MEDS: POLYETHYL GLY 3350 17 GM/DOSE PO SCH ×2 (08:00→08:27)
[2021-05-16] MEDS: dexAMETHasone 4 MG TAB PO SCH ×2 (08:27→19:52)
[2021-05-16] MEDS: levETIRAcetam 500 MG TAB PO SCH ×2 (08:27→19:52)
[2021-05-16] MEDS: SODIUM CHLORIDE 1 GM TAB PO SCH ×3 (08:27→16:47)
[2021-05-16] MEDS: FAMOTIDINE 20 MG TAB PO SCH (08:28)
[2021-05-16] MEDS: MELATONIN 3 MG TABLET PO PRN (19:52)
[2021-05-16] MEDS: ATORVASTATIN 40 MG TAB PO SCH (19:52)
[2021-05-16] MEDS: DOCUSATE NA/SENNA CONC 1 TAB PO SCH (19:58)
[2021-05-17] MEDS: ENOXAPARIN 40 MG/0.4 ML SQ SCH (06:16)
[2021-05-17] MEDS: INSULIN -REGULAR HUMAN 50 UNIT/0.5 ML ML SQ SCH ×4 (07:30→19:54)
[2021-05-17] MEDS: POLYETHYL GLY 3350 17 GM/DOSE PO SCH (07:47)
[2021-05-17] MEDS: dexAMETHasone 4 MG TAB PO SCH (07:48)
[2021-05-17] MEDS: SODIUM CHLORIDE 1 GM TAB PO SCH ×3 (07:48→16:57)
[2021-05-17] MEDS: levETIRAcetam 500 MG TAB PO SCH ×2 (07:48→19:53)
[2021-05-17] MEDS: FAMOTIDINE 20 MG TAB PO SCH (07:48)
[2021-05-17] MEDS: DOCUSATE NA/SENNA CONC 1 TAB PO SCH (19:53)
[2021-05-17] MEDS: MELATONIN 3 MG TABLET PO PRN (19:53)
[2021-05-17] MEDS: ATORVASTATIN 40 MG TAB PO SCH (19:53)
--- NOTE | 2021-05-17 19:59 | R.PN ---
PROGRESS NOTES ENCOUNTER DATE AND TIME: 05/17/2021 19:56 (CDT) NAME DIEGO DAY DATE OF : 1955 DATE OF ADMISSION: 05/11/2021 15:00 (CDT) D32.9 Benign Neoplasm of Cerebral MeningesCHIEF COMPLAINT: Status post benign neoplasm removal and weakness with ataxic gait. SUBJECTIVE: Pt denied any depression. Pt denied any Shortness of Breath. WBC 12.4, neutrophils 88.4, glucose 106 to 162, prealbumin 22.6. Ambulated 1000' with standby assistance using a rolling walker. VITAL SIGNS Temperature: 97.0 F SBP/DBP: 110/56 Pulse: 55 Resp: 16 MEDICATION ALLERGIES: No Known Drug Allergies (NKDA) ENVIRONMENTAL ALLERGIES: None Known - Substance Allergies None Known - Other Allergies None Known NURSING: - Shower allowing shower - Bladder care per protocol - Skin care per protocol PRECAUTIONS: - Fall Precaution Bed alarm ACTIVITIES OOB only with supervision THERAPIES: - Dietary and Nutrition Adequate Nutrition. Nutritional Education. Nutritional Supplements. - Occupational Therapy Cognitive Retraining. Visual Perceptual Training. UE Strengthening. ADL Training. Transfer Training. Household Tasks. UE ROM. Adaptive Equipment. Patient/Family Education. Community Reintegration. Safet y Awareness. - Speech Therapy Cognitive Training. Expressive Language Skills. Memory Strategies. Receptive Language Skills. Speech Intelligibility Training. - Physical Therapy Gait Training. Evaluate and Treat. Transfer Training. Mobility Training. Balance Training. LE Strengt hening. Patient/Family Education. LE ROM. Safety Awareness. PHYSICAL EXAM - Gen Alert and awake Lying in bed No apparent distress Oriented to: person, time, and place - Skin No skin breakdown. Normacephalic Scalp surgical sites intact - Eyes No abnormalities - ENMT No abnormalities - Neck No abnormalities - CVS RRR - Chest No abnormalities - Resp Clear to auscultation - Abd Soft - GI Non distended Deferred - No abnormalities - Ext No significant edema - MSK 4/5 weakness in both lower extremities. - Neuro No focal deficits - Psych Mild anxiety. ASSESSMENT: Pt. 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 was independent/mo d-I in Locomotion, Safety Awareness, Social Cognition, Transfers Control, Sphincter Control, Enduranc e, and Communication; and she had good Locomotion, Safety Awareness, Balance, Transfers Control, Sphi ncter Control, Self-Care, Communication, and Endurance.Currently, she has deficits of Locomotion, Saf ety Awareness, Social Cognition, Balance, Transfers Control, Self-Care, Communication, and Endurance. Pt. is now referred to [facility] for acute in-patient rehabilitation in order to maximize patient's functional independence in activities of daily living, strength, ROM, and mobi lity.- Rehab Goal Patient has realistic goal of being discharged at assistance level 7-Ind to reside at Home with Pt s elf. MDM/PLAN: - Physical Therapy Gait dysfunction - to improve, our physical therapists will perform initial evaluation of pt's statu s upon admission and devise an individualized program for Gait Training, and Wheel Chair mobility Inability to transfer - to improve, our physical therapists will perform initial evaluation of pt's status upon admission and devise an individualized program for Bed mobility Need for home safety evaluation - to improve, our physical therapists will perform initial evaluatio n of pt's status upon admission and devise an individualized program for Home Evaluation Need in caregiver upon discharge - to improve, our physical therapists will perform initial evaluati on of pt's status upon admission and devise an individualized program for Caregiver Training New precaution - to improve, our physical therapists will perform initial evaluation of pt's status upon admission and devise an individualized program for Patient precaution education Edema - to improve, our physical therapists will perform initial evaluation of pt's status upon admi ssion and devise an individualized program for Elevation Training, and Lymphedema Therapy Poor balance - to improve, our physical therapists will perform initial evaluation of pt's status up on admission and devise an individualized program for Balance Training Poor endurance - to improve, our physical therapists will perform initial evaluation of pt's status upon admission and devise an individualized program for Endurance Training Weakness - to improve, our physical therapists will perform initial evaluation of pt's status upon a dmission and devise an individualized program for Aquatic Therapy, Neuromuscular Reeducation, and Str engthening Achieving independence - to improve, our physical therapists will perform initial evaluation of pt's status upon admission and devise an individualized program for Community Reintegration Activities - Occupational Therapy ADL deficits - to improve, our occupation therapists will perform initial evaluation of pt's status upon admission and devise an individualized program for Bathing, Bed mobility, Community Reintegratio n, Cooking, Dressing, Eating, Fine Motor Skills, Grooming, Homemaking, Kitchen Mobility, Laundry, Pat ient Education, Safety Awareness, Splinting - Positioning, Transfers(Toilet, Tub, Shower), and Wheel Chair Management Cognitive deficits - to improve, our occupation therapists will perform initial evaluation of pt's s tatus upon admission and devise an individualized program for Cognition - orientation Need for care rep - to improve, our occupation therapists will perform initial evaluation of pt's status upon admission and devise an individualized program for Caregiver Training Weakness - to improve, our occupation therapists will perform initial evaluation of pt's status upon admission and devise an individualized program for Aquatic Therapy, Balance, Endurance, UE ROM, and UE strengthening - Other See attached MAR (Medication Administration Record) - Diet Type Continue Regular - Diet - Liquid Texture Continue Regular - Tube Feed Continue N/A - Bladder care per protocol - Fall Precaution Bed alarm TABS alarm Wheel chair alarm - Skin care per protocol - Diet - Solid Texture Continue Regular - Shower allowing shower FUNCTIONAL STATUS: UPDATED AT WEEKLY TEAM CONFERENCE - Bladder Same accident frequency: 7-Ind - No accidents in the past 7 days - Bowel Same accident frequency: 7-Ind - No accidents in the past 7 days - Walking Same score based on distance walked: 0(N/A) Same score based on distance walked: 1(<=50ft) - Wheelchair Same score based on distance traveled: 0(N/A) FUNCTIONAL STATUS: - Self-Care A. Eating Ind B. Grooming Yasir C. Bathing sup D. Dressing - Upper sup E. Dressing - Lower Minda F. Toileting Minda - Sphincter Control G. Bladder control Yasir H. Bowel control Yasir - Transfers Control I. Bed/Chair/Wheelchair sup J. Toilet sup K. Tub/Shower Minda - Locomotion L. Walk/Wheelchair (B) Minda M. Stairs modA - Communication N. Comprehension (B) Yasir O. Expression (B) Yasir - Social Cognition P. Social Interaction Yasir Q. Problem Solving Yasir R. Memory Yasir - Endurance Good - Balance Good - Safety Awareness Fair QI SCORES: - Self-Care A. Eating 05-Setup or clean-up assistance B. Oral hygiene 04-Supervision or touching assistance C. Toileting hygiene 03-Partial/moderate assistance E. Shower/bathe self 02-Substantial/maximal assistance F. Upper body dressing 03-Partial/moderate assistance G. Lower body dressing 03-Partial/moderate assistance H. Putting on/taking off footwear 02-Substantial/maximal assistance - Mobility A. Roll left and right 04-Supervision or touching assistance B. Sit to lying 04-Supervision or touching assistance C. Lying to sitting on side of bed 04-Supervision or touching assistance D. Sit to stand 04-Supervision or touching assistance E. Chair/hac-gi-iodhe transfer 04-Supervision or touching assistance F. Toilet transfer 03-Partial/moderate assistance G. Car transfer 88-Not attempted due to medical condition or safety concerns I. Walk 10 feet 04-Supervision or touching assistance J. Walk 50 feet with two turns 88-Not attempted due to medical condition or safety concerns K. Walk 150 feet 88-Not attempted due to medical condition or safety concerns L. Walking 10 feet on uneven surfaces 88-Not attempted due to medical condition or safety concerns M. 1 step (curb) 88-Not attempted due to medical condition or safety concerns N. 4 steps 88-Not attempted due to medical condition or safety concerns O. 12 steps 88-Not attempted due to medical condition or safety concerns P. Picking up object 88-Not attempted due to medical condition or safety concerns R. Wheel 50 feet with two turns 88-Not attempted due to medical condition or safety concerns S. Wheel 150 feet 88-Not attempted due to medical condition or safety concerns - Bladder and Bowel Bladder continence Bowel continence - Endurance Fair - Balance Fair - Safety Awareness Fair CURRENT [facility]. DEFICITS: Self-Care, Mobility, Endurance, Balance, and Safety Awareness SIGNATURE PANEL: (CDT)
[2021-05-18] MEDS: INSULIN -REGULAR HUMAN 50 UNIT/0.5 ML ML SQ SCH ×4 (07:30→19:51)
[2021-05-18] MEDS: ENOXAPARIN 40 MG/0.4 ML SQ SCH (08:13)
[2021-05-18] MEDS: FAMOTIDINE 20 MG TAB PO SCH (08:13)
[2021-05-18] MEDS: dexAMETHasone 4 MG TAB PO SCH (08:14)
[2021-05-18] MEDS: SODIUM CHLORIDE 1 GM TAB PO SCH ×3 (08:14→17:35)
[2021-05-18] MEDS: POLYETHYL GLY 3350 17 GM/DOSE PO SCH (08:14)
[2021-05-18] MEDS: levETIRAcetam 500 MG TAB PO SCH ×2 (08:14→19:51)
--- NOTE | 2021-05-18 18:27 | R.PN ---
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 SUBJECTIVE: Pt denied any depression. Pt denied any Shortness of Breath. WBC 12.4, neutrophils 88.4, glucose 81 to 145, prealbumin 22.6. Ambulated 600' with standby assistance using a rolling walker. VITAL SIGNS Temperature: 98.0 F SBP/DBP: 106/56 Pulse: 62 Resp: 16 MEDICATION ALLERGIES: No Known Drug Allergies (NKDA) ENVIRONMENTAL ALLERGIES: None Known - Substance Allergies None Known - Other Allergies None Known NURSING: - Shower allowing shower - Bladder care per protocol - Skin care per protocol PRECAUTIONS: - Fall Precaution Bed alarm ACTIVITIES OOB only with supervision THERAPIES: - Dietary and Nutrition Adequate Nutrition. Nutritional Education. Nutritional Supplements. - Occupational Therapy Cognitive Retraining. Visual Perceptual Training. UE Strengthening. ADL Training. Transfer Training. Household Tasks. UE ROM. Adaptive Equipment. Patient/Family Education. Community Reintegration. Safet y Awareness. - Speech Therapy Cognitive Training. Expressive Language Skills. Memory Strategies. Receptive Language Skills. Speech Intelligibility Training. - Physical Therapy Gait Training. Evaluate and Treat. Transfer Training. Mobility Training. Balance Training. LE Strengt hening. Patient/Family Education. LE ROM. Safety Awareness. PHYSICAL EXAM - Gen Alert and awake Lying in bed No apparent distress Oriented to: person, time, and place - Skin No skin breakdown. Normacephalic Scalp surgical sites intact - Eyes No abnormalities - ENMT No abnormalities - Neck No abnormalities - CVS RRR - Chest No abnormalities - Resp Clear to auscultation - Abd Soft - GI Non distended Deferred - No abnormalities - Ext No significant edema - MSK 4/5 weakness in both lower extremities. - Neuro No focal deficits - Psych Mild anxiety. ASSESSMENT: Pt. is a 65 yo Right-handed HF.On 05/01/2021 she was admitted to 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 was independent/mo d-I in Locomotion, Safety Awareness, Social Cognition, Transfers Control, Sphincter Control, Enduranc e, and Communication; and she had good Locomotion, Safety Awareness, Balance, Transfers Control, Sphi ncter Control, Self-Care, Communication, and Endurance.Currently, she has deficits of Locomotion, Saf ety Awareness, Social Cognition, Balance, Transfers Control, Self-Care, Communication, and Endurance. Pt. is now referred to [facility] for acute in-patient rehabilitation in order to maximize patient's functional independence in activities of daily living, strength, ROM, and mobi lity.- Rehab Goal Patient has realistic goal of being discharged at assistance level 7-Ind to reside at Home with Pt s elf. MDM/PLAN: - Physical Therapy Gait dysfunction - to improve, our physical therapists will perform initial evaluation of pt's statu s upon admission and devise an individualized program for Gait Training, and Wheel Chair mobility Inability to transfer - to improve, our physical therapists will perform initial evaluation of pt's status upon admission and devise an individualized program for Bed mobility Need for home safety evaluation - to improve, our physical therapists will perform initial evaluatio n of pt's status upon admission and devise an individualized program for Home Evaluation Need in caregiver upon discharge - to improve, our physical therapists will perform initial evaluati on of pt's status upon admission and devise an individualized program for Caregiver Training New precaution - to improve, our physical therapists will perform initial evaluation of pt's status upon admission and devise an individualized program for Patient precaution education Edema - to improve, our physical therapists will perform initial evaluation of pt's status upon admi ssion and devise an individualized program for Elevation Training, and Lymphedema Therapy Poor balance - to improve, our physical therapists will perform initial evaluation of pt's status up on admission and devise an individualized program for Balance Training Poor endurance - to improve, our physical therapists will perform initial evaluation of pt's status upon admission and devise an individualized program for Endurance Training Weakness - to improve, our physical therapists will perform initial evaluation of pt's status upon a dmission and devise an individualized program for Aquatic Therapy, Neuromuscular Reeducation, and Str engthening Achieving independence - to improve, our physical therapists will perform initial evaluation of pt's status upon admission and devise an individualized program for Community Reintegration Activities - Occupational Therapy ADL deficits - to improve, our occupation therapists will perform initial evaluation of pt's status upon admission and devise an individualized program for Bathing, Bed mobility, Community Reintegratio n, Cooking, Dressing, Eating, Fine Motor Skills, Grooming, Homemaking, Kitchen Mobility, Laundry, Pat ient Education, Safety Awareness, Splinting - Positioning, Transfers(Toilet, Tub, Shower), and Wheel Chair Management Cognitive deficits - to improve, our occupation therapists will perform initial evaluation of pt's s tatus upon admission and devise an individualized program for Cognition - orientation Need for long term acute care registered nurse - to improve, our occupation therapists will perform initial evaluation of pt's status upon admission and devise an individualized program for Caregiver Training Weakness - to improve, our occupation therapists will perform initial evaluation of pt's status upon admission and devise an individualized program for Aquatic Therapy, Balance, Endurance, UE ROM, and UE strengthening - Other See attached MAR (Medication Administration Record) - Diet Type Continue Regular - Diet - Liquid Texture Continue Regular - Tube Feed Continue N/A - Bladder care per protocol - Fall Precaution Bed alarm TABS alarm Wheel chair alarm - Skin care per protocol - Diet - Solid Texture Continue Regular - Shower allowing shower FUNCTIONAL STATUS: UPDATED AT WEEKLY TEAM CONFERENCE - Bladder Same accident frequency: 7-Ind - No accidents in the past 7 days - Bowel Same accident frequency: 7-Ind - No accidents in the past 7 days - Walking Same score based on distance walked: 0(N/A) Same score based on distance walked: 1(<=50ft) - Wheelchair Same score based on distance traveled: 0(N/A) FUNCTIONAL STATUS: - Self-Care A. Eating Ind B. Grooming Yasir C. Bathing sup D. Dressing - Upper sup E. Dressing - Lower Minda F. Toileting Minda - Sphincter Control G. Bladder control Yasir H. Bowel control Yasir - Transfers Control I. Bed/Chair/Wheelchair sup J. Toilet sup K. Tub/Shower Minda - Locomotion L. Walk/Wheelchair (B) Minda M. Stairs modA - Communication N. Comprehension (B) Yasir O. Expression (B) Yasir - Social Cognition P. Social Interaction Yasir Q. Problem Solving Yasir R. Memory Yasir - Endurance Good - Balance Good - Safety Awareness Fair QI SCORES: - Self-Care A. Eating 05-Setup or clean-up assistance B. Oral hygiene 04-Supervision or touching assistance C. Toileting hygiene 03-Partial/moderate assistance E. Shower/bathe self 02-Substantial/maximal assistance F. Upper body dressing 03-Partial/moderate assistance G. Lower body dressing 03-Partial/moderate assistance H. Putting on/taking off footwear 02-Substantial/maximal assistance - Mobility A. Roll left and right 04-Supervision or touching assistance B. Sit to lying 04-Supervision or touching assistance C. Lying to sitting on side of bed 04-Supervision or touching assistance D. Sit to stand 04-Supervision or touching assistance E. Chair/[id number]-[id number] transfer 04-Supervision or touching assistance F. Toilet transfer 03-Partial/moderate assistance G. Car transfer 88-Not attempted due to medical condition or safety concerns I. Walk 10 feet 04-Supervision or touching assistance J. Walk 50 feet with two turns 88-Not attempted due to medical condition or safety concerns K. Walk 150 feet 88-Not attempted due to medical condition or safety concerns L. Walking 10 feet on uneven surfaces 88-Not attempted due to medical condition or safety concerns M. 1 step (curb) 88-Not attempted due to medical condition or safety concerns N. 4 steps 88-Not attempted due to medical condition or safety concerns O. 12 steps 88-Not attempted due to medical condition or safety concerns P. Picking up object 88-Not attempted due to medical condition or safety concerns R. Wheel 50 feet with two turns 88-Not attempted due to medical condition or safety concerns S. Wheel 150 feet 88-Not attempted due to medical condition or safety concerns - Bladder and Bowel Bladder continence Bowel continence - Endurance Fair - Balance Fair - Safety Awareness Fair CURRENT [facility]. DEFICITS: Self-Care, Mobility, Endurance, Balance, and Safety Awareness SIGNATURE PANEL: (CDT)
[2021-05-18] MEDS: ATORVASTATIN 40 MG TAB PO SCH (19:50)
[2021-05-18] MEDS: MELATONIN 3 MG TABLET PO PRN (19:51)
[2021-05-18] MEDS: DOCUSATE NA/SENNA CONC 1 TAB PO SCH (19:51)
[2021-05-19] MEDS: INSULIN -REGULAR HUMAN 50 UNIT/0.5 ML ML SQ SCH ×4 (07:30→20:44)
[2021-05-19] MEDS: POLYETHYL GLY 3350 17 GM/DOSE PO SCH (08:14)
[2021-05-19] MEDS: SODIUM CHLORIDE 1 GM TAB PO SCH ×3 (08:14→17:54)
[2021-05-19] MEDS: dexAMETHasone 4 MG TAB PO SCH (08:15)
[2021-05-19] MEDS: FAMOTIDINE 20 MG TAB PO SCH (08:15)
[2021-05-19] MEDS: ENOXAPARIN 40 MG/0.4 ML SQ SCH (08:15)
[2021-05-19] MEDS: levETIRAcetam 500 MG TAB PO SCH ×2 (08:15→20:43)
--- NOTE | 2021-05-19 17:44 | R.PN ---
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 SUBJECTIVE: Pt denied any depression. Pt denied any Shortness of Breath. WBC 12.4, neutrophils 88.4, glucose 76 to 137, prealbumin 22.6. Ambulated 1000' with modified independence using a rolling walker. Ambulated 120' without an assisti ve device. VITAL SIGNS Temperature: 97.0 F SBP/DBP: 92/53 Pulse: 65 Resp: 16 MEDICATION ALLERGIES: No Known Drug Allergies (NKDA) ENVIRONMENTAL ALLERGIES: None Known - Substance Allergies None Known - Other Allergies None Known NURSING: - Shower allowing shower - Bladder care per protocol - Skin care per protocol PRECAUTIONS: - Fall Precaution Bed alarm ACTIVITIES OOB only with supervision THERAPIES: - Dietary and Nutrition Adequate Nutrition. Nutritional Education. Nutritional Supplements. - Occupational Therapy Cognitive Retraining. Visual Perceptual Training. UE Strengthening. ADL Training. Transfer Training. Household Tasks. UE ROM. Adaptive Equipment. Patient/Family Education. Community Reintegration. Safet y Awareness. - Speech Therapy Cognitive Training. Expressive Language Skills. Memory Strategies. Receptive Language Skills. Speech Intelligibility Training. - Physical Therapy Gait Training. Evaluate and Treat. Transfer Training. Mobility Training. Balance Training. LE Strengt hening. Patient/Family Education. LE ROM. Safety Awareness. PHYSICAL EXAM - Gen Alert and awake Lying in bed No apparent distress Oriented to: person, time, and place - Skin No skin breakdown. Normacephalic Scalp surgical sites intact - Eyes No abnormalities - ENMT No abnormalities - Neck No abnormalities - CVS RRR - Chest No abnormalities - Resp Clear to auscultation - Abd Soft - GI Non distended Deferred - No abnormalities - Ext No significant edema - MSK 4/5 weakness in both lower extremities. - Neuro No focal deficits - Psych Mild anxiety. ASSESSMENT: Pt. 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 was independent/mo d-I in Locomotion, Safety Awareness, Social Cognition, Transfers Control, Sphincter Control, Enduranc e, and Communication; and she had good Locomotion, Safety Awareness, Balance, Transfers Control, Sphi ncter Control, Self-Care, Communication, and Endurance.Currently, she has deficits of Locomotion, Saf ety Awareness, Social Cognition, Balance, Transfers Control, Self-Care, Communication, and Endurance. Pt. is now referred to [facility] for acute in-patient rehabilitation in order to maximize patient's functional independence in activities of daily living, strength, ROM, and mobi lity.- Rehab Goal Patient has realistic goal of being discharged at assistance level 7-Ind to reside at Home with Pt s elf. MDM/PLAN: - Physical Therapy Gait dysfunction - to improve, our physical therapists will perform initial evaluation of pt's statu s upon admission and devise an individualized program for Gait Training, and Wheel Chair mobility Inability to transfer - to improve, our physical therapists will perform initial evaluation of pt's status upon admission and devise an individualized program for Bed mobility Need for home safety evaluation - to improve, our physical therapists will perform initial evaluatio n of pt's status upon admission and devise an individualized program for Home Evaluation Need in caregiver upon discharge - to improve, our physical therapists will perform initial evaluati on of pt's status upon admission and devise an individualized program for Caregiver Training New precaution - to improve, our physical therapists will perform initial evaluation of pt's status upon admission and devise an individualized program for Patient precaution education Edema - to improve, our physical therapists will perform initial evaluation of pt's status upon admi ssion and devise an individualized program for Elevation Training, and Lymphedema Therapy Poor balance - to improve, our physical therapists will perform initial evaluation of pt's status up on admission and devise an individualized program for Balance Training Poor endurance - to improve, our physical therapists will perform initial evaluation of pt's status upon admission and devise an individualized program for Endurance Training Weakness - to improve, our physical therapists will perform initial evaluation of pt's status upon a dmission and devise an individualized program for Aquatic Therapy, Neuromuscular Reeducation, and Str engthening Achieving independence - to improve, our physical therapists will perform initial evaluation of pt's status upon admission and devise an individualized program for Community Reintegration Activities - Occupational Therapy ADL deficits - to improve, our occupation therapists will perform initial evaluation of pt's status upon admission and devise an individualized program for Bathing, Bed mobility, Community Reintegratio n, Cooking, Dressing, Eating, Fine Motor Skills, Grooming, Homemaking, Kitchen Mobility, Laundry, Pat ient Education, Safety Awareness, Splinting - Positioning, Transfers(Toilet, Tub, Shower), and Wheel Chair Management Cognitive deficits - to improve, our occupation therapists will perform initial evaluation of pt's s tatus upon admission and devise an individualized program for Cognition - orientation Need for medicare sales representative - to improve, our occupation therapists will perform initial evaluation of pt's status upon admission and devise an individualized program for Caregiver Training Weakness - to improve, our occupation therapists will perform initial evaluation of pt's status upon admission and devise an individualized program for Aquatic Therapy, Balance, Endurance, UE ROM, and UE strengthening - Other See attached MAR (Medication Administration Record) - Diet Type Continue Regular - Diet - Liquid Texture Continue Regular - Tube Feed Continue N/A - Bladder care per protocol - Fall Precaution Bed alarm TABS alarm Wheel chair alarm - Skin care per protocol - Diet - Solid Texture Continue Regular - Shower allowing shower FUNCTIONAL STATUS: UPDATED AT WEEKLY TEAM CONFERENCE - Bladder Same accident frequency: 7-Ind - No accidents in the past 7 days - Bowel Same accident frequency: 7-Ind - No accidents in the past 7 days - Walking Same score based on distance walked: 0(N/A) Same score based on distance walked: 1(<=50ft) - Wheelchair Same score based on distance traveled: 0(N/A) FUNCTIONAL STATUS: - Self-Care A. Eating Ind B. Grooming Yasir C. Bathing sup D. Dressing - Upper sup E. Dressing - Lower Minda F. Toileting Minda - Sphincter Control G. Bladder control Yasir H. Bowel control Yasir - Transfers Control I. Bed/Chair/Wheelchair sup J. Toilet sup K. Tub/Shower Minda - Locomotion L. Walk/Wheelchair (B) Minda M. Stairs modA - Communication N. Comprehension (B) Yasir O. Expression (B) Yasir - Social Cognition P. Social Interaction Yasir Q. Problem Solving Yasir R. Memory Yasir - Endurance Good - Balance Good - Safety Awareness Fair QI SCORES: - Self-Care A. Eating 05-Setup or clean-up assistance B. Oral hygiene 04-Supervision or touching assistance C. Toileting hygiene 03-Partial/moderate assistance E. Shower/bathe self 02-Substantial/maximal assistance F. Upper body dressing 03-Partial/moderate assistance G. Lower body dressing 03-Partial/moderate assistance H. Putting on/taking off footwear 02-Substantial/maximal assistance - Mobility A. Roll left and right 04-Supervision or touching assistance B. Sit to lying 04-Supervision or touching assistance C. Lying to sitting on side of bed 04-Supervision or touching assistance D. Sit to stand 04-Supervision or touching assistance E. Chair/cqh-[id number]-lclib transfer 04-Supervision or touching assistance F. Toilet transfer 03-Partial/moderate assistance G. Car transfer 88-Not attempted due to medical condition or safety concerns I. Walk 10 feet 04-Supervision or touching assistance J. Walk 50 feet with two turns 88-Not attempted due to medical condition or safety concerns K. Walk 150 feet 88-Not attempted due to medical condition or safety concerns L. Walking 10 feet on uneven surfaces 88-Not attempted due to medical condition or safety concerns M. 1 step (curb) 88-Not attempted due to medical condition or safety concerns N. 4 steps 88-Not attempted due to medical condition or safety concerns O. 12 steps 88-Not attempted due to medical condition or safety concerns P. Picking up object 88-Not attempted due to medical condition or safety concerns R. Wheel 50 feet with two turns 88-Not attempted due to medical condition or safety concerns S. Wheel 150 feet 88-Not attempted due to medical condition or safety concerns - Bladder and Bowel Bladder continence Bowel continence - Endurance Fair - Balance Fair - Safety Awareness Fair [facility] DEFICITS: Self-Care, Mobility, Endurance, Balance, and Safety Awareness SIGNATURE PANEL: (CDT)
[2021-05-19] MEDS: DOCUSATE NA/SENNA CONC 1 TAB PO SCH (20:43)
[2021-05-19] MEDS: MELATONIN 3 MG TABLET PO PRN (20:44)
[2021-05-19] MEDS: ATORVASTATIN 40 MG TAB PO SCH (20:44)
[2021-05-20 06:17] LABS: Absolute Lymphocytes (CBC) 2.2 K/uL (0.7-4.9); Basophils % 0.6 % (0-1.3); Hematocrit 30.2 % (36.0-45.0); Lymphocytes % 33.1 % (15.3-44.8); MPV 9.3 fL (7.6-11.3); RBC Red Blood Cell Count 3.38 M/uL (3.86-4.86)
[2021-05-20 06:34] LABS: Albumin 2.6 g/dL (3.4-5.0); Potassium 3.7 mmol/L (3.5-5.1); Prealbumin 19.8 mg/dL (20-40)
[2021-05-20] MEDS: ENOXAPARIN 40 MG/0.4 ML SQ SCH (06:55)
[2021-05-20] MEDS: INSULIN -REGULAR HUMAN 50 UNIT/0.5 ML ML SQ SCH ×4 (07:30→20:18)
[2021-05-20] MEDS: FAMOTIDINE 20 MG TAB PO SCH (07:46)
[2021-05-20] MEDS: POLYETHYL GLY 3350 17 GM/DOSE PO SCH (07:46)
[2021-05-20] MEDS: SODIUM CHLORIDE 1 GM TAB PO SCH ×3 (07:46→16:49)
[2021-05-20] MEDS: levETIRAcetam 500 MG TAB PO SCH ×2 (07:47→20:17)
--- NOTE | 2021-05-20 18:02 | R.PN ---
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 SUBJECTIVE: Pt denied any depression. Pt denied any Shortness of Breath. WBC 6.6, Hgb 10.3, glucose 77 to 137, prealbumin 19.8. Ambulated 1000' with modified independence using a rolling walker. Ambulated 120' without an assisti ve device and contact guard assistance. VITAL SIGNS Temperature: 97.6 F SBP/DBP: 118/61 Pulse: 68 Resp: 15 MEDICATION ALLERGIES: No Known Drug Allergies (NKDA) ENVIRONMENTAL ALLERGIES: None Known - Substance Allergies None Known - Other Allergies None Known NURSING: - Shower allowing shower - Bladder care per protocol - Skin care per protocol PRECAUTIONS: - Fall Precaution Bed alarm ACTIVITIES OOB only with supervision THERAPIES: - Dietary and Nutrition Adequate Nutrition. Nutritional Education. Nutritional Supplements. - Occupational Therapy Cognitive Retraining. Visual Perceptual Training. UE Strengthening. ADL Training. Transfer Training. Household Tasks. UE ROM. Adaptive Equipment. Patient/Family Education. Community Reintegration. Safet y Awareness. - Speech Therapy Cognitive Training. Expressive Language Skills. Memory Strategies. Receptive Language Skills. Speech Intelligibility Training. - Physical Therapy Gait Training. Evaluate and Treat. Transfer Training. Mobility Training. Balance Training. LE Strengt hening. Patient/Family Education. LE ROM. Safety Awareness. PHYSICAL EXAM - Gen Alert and awake Lying in bed No apparent distress Oriented to: person, time, and place - Skin No skin breakdown. Normacephalic Scalp surgical sites intact - Eyes No abnormalities - ENMT No abnormalities - Neck No abnormalities - CVS RRR - Chest No abnormalities - Resp Clear to auscultation - Abd Soft - GI Non distended Deferred - No abnormalities - Ext No significant edema - MSK 4/5 weakness in both lower extremities. - Neuro No focal deficits - Psych Mild anxiety. ASSESSMENT: Pt. 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 was independent/mo d-I in Locomotion, Safety Awareness, Social Cognition, Transfers Control, Sphincter Control, Enduranc e, and Communication; and she had good Locomotion, Safety Awareness, Balance, Transfers Control, Sphi ncter Control, Self-Care, Communication, and Endurance.Currently, she has deficits of Locomotion, Saf ety Awareness, Social Cognition, Balance, Transfers Control, Self-Care, Communication, and Endurance. Pt. is now referred to [facility] for acute in-patient rehabilitation in order to maximize patient's functional independence in activities of daily living, strength, ROM, and mobi lity.- Rehab Goal Patient has realistic goal of being discharged at assistance level 7-Ind to reside at Home with Pt s elf. MDM/PLAN: - Physical Therapy Gait dysfunction - to improve, our physical therapists will perform initial evaluation of pt's statu s upon admission and devise an individualized program for Gait Training, and Wheel Chair mobility Inability to transfer - to improve, our physical therapists will perform initial evaluation of pt's status upon admission and devise an individualized program for Bed mobility Need for home safety evaluation - to improve, our physical therapists will perform initial evaluatio n of pt's status upon admission and devise an individualized program for Home Evaluation Need in caregiver upon discharge - to improve, our physical therapists will perform initial evaluati on of pt's status upon admission and devise an individualized program for Caregiver Training New precaution - to improve, our physical therapists will perform initial evaluation of pt's status upon admission and devise an individualized program for Patient precaution education Edema - to improve, our physical therapists will perform initial evaluation of pt's status upon admi ssion and devise an individualized program for Elevation Training, and Lymphedema Therapy Poor balance - to improve, our physical therapists will perform initial evaluation of pt's status up on admission and devise an individualized program for Balance Training Poor endurance - to improve, our physical therapists will perform initial evaluation of pt's status upon admission and devise an individualized program for Endurance Training Weakness - to improve, our physical therapists will perform initial evaluation of pt's status upon a dmission and devise an individualized program for Aquatic Therapy, Neuromuscular Reeducation, and Str engthening Achieving independence - to improve, our physical therapists will perform initial evaluation of pt's status upon admission and devise an individualized program for Community Reintegration Activities - Occupational Therapy ADL deficits - to improve, our occupation therapists will perform initial evaluation of pt's status upon admission and devise an individualized program for Bathing, Bed mobility, Community Reintegratio n, Cooking, Dressing, Eating, Fine Motor Skills, Grooming, Homemaking, Kitchen Mobility, Laundry, Pat ient Education, Safety Awareness, Splinting - Positioning, Transfers(Toilet, Tub, Shower), and Wheel Chair Management Cognitive deficits - to improve, our occupation therapists will perform initial evaluation of pt's s tatus upon admission and devise an individualized program for Cognition - orientation Need for family day care worker - to improve, our occupation therapists will perform initial evaluation of pt's status upon admission and devise an individualized program for Caregiver Training Weakness - to improve, our occupation therapists will perform initial evaluation of pt's status upon admission and devise an individualized program for Aquatic Therapy, Balance, Endurance, UE ROM, and UE strengthening - Other See attached MAR (Medication Administration Record) - Diet Type Continue Regular - Diet - Liquid Texture Continue Regular - Tube Feed Continue N/A - Bladder care per protocol - Fall Precaution Bed alarm TABS alarm Wheel chair alarm - Skin care per protocol - Diet - Solid Texture Continue Regular - Shower allowing shower FUNCTIONAL STATUS: UPDATED AT WEEKLY TEAM CONFERENCE - Bladder Same accident frequency: 7-Ind - No accidents in the past 7 days - Bowel Same accident frequency: 7-Ind - No accidents in the past 7 days - Walking Same score based on distance walked: 0(N/A) Same score based on distance walked: 1(<=50ft) - Wheelchair Same score based on distance traveled: 0(N/A) FUNCTIONAL STATUS: - Self-Care A. Eating Ind B. Grooming Yasir C. Bathing sup D. Dressing - Upper sup E. Dressing - Lower Minda F. Toileting Minda - Sphincter Control G. Bladder control Yasir H. Bowel control Yasir - Transfers Control I. Bed/Chair/Wheelchair sup J. Toilet sup K. Tub/Shower Minda - Locomotion L. Walk/Wheelchair (B) Minda M. Stairs modA - Communication N. Comprehension (B) Yasir O. Expression (B) Yasir - Social Cognition P. Social Interaction Yasir Q. Problem Solving Yasir R. Memory Yasir - Endurance Good - Balance Good - Safety Awareness Fair QI SCORES: - Self-Care A. Eating 05-Setup or clean-up assistance B. Oral hygiene 04-Supervision or touching assistance C. Toileting hygiene 03-Partial/moderate assistance E. Shower/bathe self 02-Substantial/maximal assistance F. Upper body dressing 03-Partial/moderate assistance G. Lower body dressing 03-Partial/moderate assistance H. Putting on/taking off footwear 02-Substantial/maximal assistance - Mobility A. Roll left and right 04-Supervision or touching assistance B. Sit to lying 04-Supervision or touching assistance C. Lying to sitting on side of bed 04-Supervision or touching assistance D. Sit to stand 04-Supervision or touching assistance E. Chair/[id number] transfer 04-Supervision or touching assistance F. Toilet transfer 03-Partial/moderate assistance G. Car transfer 88-Not attempted due to medical condition or safety concerns I. Walk 10 feet 04-Supervision or touching assistance J. Walk 50 feet with two turns 88-Not attempted due to medical condition or safety concerns K. Walk 150 feet 88-Not attempted due to medical condition or safety concerns L. Walking 10 feet on uneven surfaces 88-Not attempted due to medical condition or safety concerns M. 1 step (curb) 88-Not attempted due to medical condition or safety concerns N. 4 steps 88-Not attempted due to medical condition or safety concerns O. 12 steps 88-Not attempted due to medical condition or safety concerns P. Picking up object 88-Not attempted due to medical condition or safety concerns R. Wheel 50 feet with two turns 88-Not attempted due to medical condition or safety concerns S. Wheel 150 feet 88-Not attempted due to medical condition or safety concerns - Bladder and Bowel Bladder continence Bowel continence - Endurance Fair - Balance Fair - Safety Awareness Fair CURRENT FUNC. DEFICITS: Self-Care, Mobility, Endurance, Balance, and Safety Awareness SIGNATURE PANEL: (CDT)
[2021-05-20] MEDS: MELATONIN 3 MG TABLET PO PRN (20:17)
[2021-05-20] MEDS: DOCUSATE NA/SENNA CONC 1 TAB PO SCH (20:17)
[2021-05-20] MEDS: ATORVASTATIN 40 MG TAB PO SCH (20:17)
[2021-05-21] MEDS: INSULIN -REGULAR HUMAN 50 UNIT/0.5 ML ML SQ SCH ×4 (07:30→21:00)
[2021-05-21] MEDS: POLYETHYL GLY 3350 17 GM/DOSE PO SCH (09:31)
[2021-05-21] MEDS: FAMOTIDINE 20 MG TAB PO SCH (09:31)
[2021-05-21] MEDS: SODIUM CHLORIDE 1 GM TAB PO SCH ×3 (09:31→18:27)
[2021-05-21] MEDS: ENOXAPARIN 40 MG/0.4 ML SQ SCH (09:31)
[2021-05-21] MEDS: levETIRAcetam 500 MG TAB PO SCH ×2 (09:32→19:48)
--- NOTE | 2021-05-21 09:55 | P.RH.PN ---
Estimated Length of Stay: 13 Expected Discharge Date: 05/23/21 Discharge Disposition Plan: Home Family Support: Yes Detention Goal: Mobility, Transfers, Self Care Vital Signs: Last Vital Signs Temp 96.9 F 05/21/21 08:00 Pulse 68 05/21/21 08:00 Resp 16 05/21/21 08:00 BP 109/56 L 05/21/21 08:00 Pulse Ox 100 05/21/21 08:00 Laboratory: Laboratory Last Values WBC 6.60 K/uL (4.3-10.9) D 05/20/21 05:41 RBC 3.38 M/uL (3.86-4.86) L 05/20/21 05:41 Hgb 10.3 g/dL (12.0-15.0) L 05/20/21 05:41 Hct 30.2 % (36.0-45.0) L 05/20/21 05:41 MCV 89.4 fL (80-100) 05/20/21 05:41 MCH 30.5 pg (27.0-35.0) 05/20/21 05:41 MCHC 34.1 g/dL (32.0-36.0) 05/20/21 05:41 RDW 15.4 % (12.1-15.2) H 05/20/21 05:41 Plt Count 156 K/uL (152-406) D 05/20/21 05:41 MPV 9.3 fL (7.6-11.3) 05/20/21 05:41 Neutrophils % 56.4 % (41.7-73.7) 05/20/21 05:41 Lymphocytes % 33.1 % (15.3-44.8) 05/20/21 05:41 Monocytes % 7.7 % (3.3-12.3) 05/20/21 05:41 Eosinophils % 2.2 % (0-4.4) 05/20/21 05:41 Basophils % 0.6 % (0-1.3) 05/20/21 05:41 Absolute Neutrophils 3.7 K/uL (1.8-8.0) 05/20/21 05:41 Segmented Neutrophils 78 % (40-80) 05/12/21 04:37 Absolute Lymphocytes 2.2 K/uL (0.7-4.9) 05/20/21 05:41 Lymphocytes 9 % (15-42) L 05/12/21 04:37 Monocytes 13 % (0-10) H 05/12/21 04:37 Absolute Monocytes 0.5 K/uL (0.1-1.3) 05/20/21 05:41 Absolute Eosinophils 0.1 K/uL (0-0.5) 05/20/21 05:41 Absolute Basophils 0.0 K/uL (0-0.5) 05/20/21 05:41 Platelet Estimate Adeq 05/12/21 04:37 Morphology Comment Not seen (NOT SEEN) 05/12/21 04:37 Sodium 142 mmol/L (136-145) 05/20/21 05:41 Potassium 3.7 mmol/L (3.5-5.1) 05/20/21 05:41 Chloride 108 mmol/L (98-107) H 05/20/21 05:41 Carbon Dioxide 28 mmol/L (21-32) 05/20/21 05:41 BUN 11 mg/dL (7-18) 05/20/21 05:41 Creatinine 0.66 mg/dL (0.55-1.3) 05/20/21 05:41 Estimated GFR 90 mL/min (=/>90) 05/20/21 05:41 Glucose 94 mg/dL (74-106) 05/20/21 05:41 POC Glucose 80 mg/dL (65-120) 05/21/21 08:00 Calcium 8.5 mg/dL (8.5-10.1) 05/20/21 05:41 Magnesium 2.0 mg/dL (1.8-2.4) 05/20/21 05:41 Albumin 2.6 g/dL (3.4-5.0) L 05/20/21 05:41 Prealbumin 19.8 mg/dL (20-40) L 05/20/21 05:41 Urine Color Yellow (Yellow) 05/12/21 09:00 Urine Appearance Clear (Clear) 05/12/21 09:00 Urine pH 6.5 (5.0-7.0) 05/12/21 09:00 Ur Specific [place] 1.015 (1.005-1.030) 05/12/21 09:00 Glucose (UA)(Auto) Negative (Negative) 05/12/21 09:00 Urine Ketones Negative (Negative) 05/12/21 09:00 Urine Blood Negative (Negative) 05/12/21 09:00 Urine Nitrite Negative (Negative) 05/12/21 09:00 Urine Bilirubin Negative (Negative) 05/12/21 09:00 Urine Urobilinogen 1.0 mg/dL (0.2-1.0) 05/12/21 09:00 Ur Leukocyte Esterase Negative (Negative) 05/12/21 09:00 Urine RBC <5 /HPF (NONE SEEN) 05/12/21 09:00 Urine WBC <5 /HPF (<5) 05/12/21 09:00 Ur Squamous Epith Cells 5-10 /HPF (NONE SEEN) H 05/12/21 09:00 Urine Bacteria <20 /HPF (<20) 05/12/21 09:00 Urine Mucus 1+ /HPF (NONE SEEN) 05/12/21 09:00 Urine Culture Reflexed Not needed 05/12/21 09:00 Urine Total Protein Negative (Negative) 05/12/21 09:00 SARS-CoV-2 Rap RNA(RT-PCR) Negative (NEGATIVE) 05/18/21 16:00 Weight: 172 lb 9.6 oz Wound Present: No Closed Surgical Incision Present: Yes Negative Pressure Wound Therapy Present: No Physician Update: She is doing well with all therapy. Her labs are stable. Walking 1000' with independence. Functional Improvement: Patient transfers and ambulation inside her room is now Modified I. Patient is making progress toward being Independent Summary: Patient's care plan and [employer] continuous churn goals have been reviewed and revised as necessary. Please see the Rehabilitation Signature page for all necessary signatures.
[2021-05-21] MEDS: ATORVASTATIN 40 MG TAB PO SCH (19:49)
[2021-05-21] MEDS: MELATONIN 3 MG TABLET PO PRN (19:49)
[2021-05-21] MEDS: DOCUSATE NA/SENNA CONC 1 TAB PO SCH ×2 (19:49→21:00)
[2021-05-22] MEDS: INSULIN -REGULAR HUMAN 50 UNIT/0.5 ML ML SQ SCH ×4 (07:30→20:24)
[2021-05-22] MEDS: POLYETHYL GLY 3350 17 GM/DOSE PO SCH (08:00)
[2021-05-22] MEDS: levETIRAcetam 500 MG TAB PO SCH ×2 (08:07→20:24)
[2021-05-22] MEDS: SODIUM CHLORIDE 1 GM TAB PO SCH ×3 (08:07→16:56)
[2021-05-22] MEDS: ENOXAPARIN 40 MG/0.4 ML SQ SCH (08:07)
[2021-05-22] MEDS: FAMOTIDINE 20 MG TAB PO SCH (08:07)
[2021-05-22] MEDS: MELATONIN 3 MG TABLET PO PRN (20:24)
[2021-05-22] MEDS: DOCUSATE NA/SENNA CONC 1 TAB PO SCH (20:24)
[2021-05-22] MEDS: ATORVASTATIN 40 MG TAB PO SCH (20:24)
[2021-05-23] MEDS: INSULIN -REGULAR HUMAN 50 UNIT/0.5 ML ML SQ SCH ×2 (07:30→11:30)
[2021-05-23] MEDS: POLYETHYL GLY 3350 17 GM/DOSE PO SCH (08:00)
[2021-05-23 08:03] VITALS: BP 106/66; TEMP 97
[2021-05-23] MEDS: levETIRAcetam 500 MG TAB PO SCH (08:40)
[2021-05-23] MEDS: FAMOTIDINE 20 MG TAB PO SCH (08:40)
[2021-05-23] MEDS: SODIUM CHLORIDE 1 GM TAB PO SCH ×2 (08:40→12:28)
[2021-05-23] MEDS: ENOXAPARIN 40 MG/0.4 ML SQ SCH (08:41)
== END 2021-05-23 16:03 | disposition home or self-care (01) | DRG 948 ==
LOC: 5TH 05-11 15:05
PROVIDERS: ADMIT Psychiatry & Neurology Neurology with Special Qualifications in Child Neurology; ATTEND Psychiatry & Neurology Neurology with Special Qualifications in Child Neurology
DX: R53.1 Weakness (principal); R26.0 Ataxic gait; E11.9 Type 2 diabetes mellitus without complications; I10 Essential (primary) hypertension; E78.5 Hyperlipidemia, unspecified; Z86.011 Personal history of benign neoplasm of the brain; Z20.822 Contact with and (suspected) exposure to COVID-19
CPT/HCPCS: 36415; 80048; 81001; 82040; 82947; 83735; 84134; 85025; 87077; 87086; 87088; 87186; 92507; 92523; 97110; 97116; 97161; 97530; J1650; J8540; U0003